=== PATIENT | male | born 1950 | race Caucasian/White ===

== ENCOUNTER 2020-03-01 06:48 | Outpatient (REF) | payer MEDICARE, OTHER, SELFPAY ==
[2020-03-01 07:22] LABS: INTERNATIONAL NORM RATIO 1.5 (0.9-1.1); Prothrombin Time 17.3 SEC (10.8-13.0)
== END 2020-03-01 06:49 | disposition home or self-care (01) ==
LOC: HO.LABR 06:48
PROVIDERS: Visit Provider Internal Medicine
DX: I48.91 Unspecified atrial fibrillation (principal)
CPT/HCPCS: 36415; 85610

== ENCOUNTER 2020-03-06 12:19 | Day surgery (SDC) | payer MEDICARE, OTHER, SELFPAY ==
--- NOTE | 2020-03-05 09:08 | HO.ANESPROP2 ---
Documented by User: Chelsey Alexisney 03/05/20 09:16 HPI - Anesthesia Eval Consult details Narrative: 69yo [facility] Past Medical History Medical History DNS (deviated nasal septum) History of cardioversion HTN (hypertension) Mixed hyperlipidemia NOEL (obstructive sleep apnea) Paroxysmal atrial fibrillation Surgical History Surgical History H/O adenoidectomy History of right inguinal hernia repair Hx of tonsillectomy Social History Social History Smoking Status: Former smoker Smoking Quit Date: 2013 Substance Use Type Other:: medical [facility] Substance Use Frequency: Weekly Advance Directives: No Advance Directives Information Provided: Yes Meds Allergies Allergy/AdvReac Type Severity Reaction Status Date / Time No Known Allergies Allergy Verified 03/05/20 08:42 [No Known Allergies*] Home Medications Medication Instructions Recorded Confirmed Type amiodarone 200 mg PO DAILY 03/05/20 03/05/20 History amlodipine 10 mg PO DAILY 03/05/20 03/05/20 History apixaban 5 mg DAILY 03/05/20 03/05/20 History atenolol 100 mg PO DAILY 03/05/20 03/05/20 History fluticasone propionate 1 spray INTRANASAL DAILY 03/05/20 03/05/20 History lisinopril 20 mg PO DAILY 03/05/20 03/05/20 History simvastatin 20 mg PO DAILY 03/05/20 03/05/20 History venlafaxine 75 mg PO DAILY 03/05/20 03/05/20 History Exam Exam Date and Time: March 05, 2020 0908 Pertinent Lab Results Pertinent Lab Results: Laboratory Tests 01/03/20 18:10 Sodium 140 Potassium 3.9 Chloride 109 H BUN 22 H Creatinine 0.80 Narrative Narrative: EKG 01/2020: afib with nml ventricular response, anteroseptal infarct, probable inferior infarct, slight inferior repolarization disturbance secondary to infarct. Assessment and Plan Assessment Anesthesia Assessment: Chart Reviewed Documented by User: Ricky Ghosh MD 03/06/20 13:59 PMFSH Past Medical History Medical History DNS (deviated nasal septum) History of cardioversion HTN (hypertension) Mixed hyperlipidemia NOEL (obstructive sleep apnea) Paroxysmal atrial fibrillation Surgical History Surgical History H/O adenoidectomy History of right inguinal hernia repair Hx of tonsillectomy Social History Social History Smoking Status: Former smoker Smoking Quit Date: 2013 Substance Use Type Other:: medical [facility] Substance Use Frequency: Weekly Advance Directives: No Advance Directives Information Provided: Yes Meds Allergies Allergy/AdvReac Type Severity Reaction Status Date / Time No Known Allergies Allergy Verified 03/05/20 08:42 [No Known Allergies*] Home Medications Medication Instructions Recorded Confirmed Type amiodarone 200 mg PO DAILY 03/05/20 03/05/20 History amlodipine 10 mg PO DAILY 03/05/20 03/05/20 History apixaban 5 mg DAILY 03/05/20 03/05/20 History atenolol 100 mg PO DAILY 03/05/20 03/05/20 History fluticasone propionate 1 spray INTRANASAL DAILY 03/05/20 03/05/20 History lisinopril 20 mg PO DAILY 03/05/20 03/05/20 History simvastatin 20 mg PO DAILY 03/05/20 03/05/20 History venlafaxine 75 mg PO DAILY 03/05/20 03/05/20 History Exam Airway Mallampati Class: III TM Dist: >3cm Neck ROM: Full Denture: Upper Heart: afib Assessment and Plan Assessment Anesthesia Assessment: Anesthesia Plan Discussed and Chart Reviewed Final Anesthetic Review NPO: Yes ASA Class: III Final Preanesthetic Review: No Changes in Pt Med Stat, Meds/Allgs Chart Reviewed, Consent Obtained/Reviewed and Anes Risks/Benef Reviewed Procedure Risk: Low Anesthetic Plan Anesthetic Plan: GA Disposition: Standard PACU
[2020-03-06] VITALS (7 sets, daily range): BP systolic 106–143; BP diastolic 54–88; PULSE 48–75; RESP 14–18; TEMP 36.3–36.7; O2SAT 95–100; BMI 25.7
--- NOTE | 2020-03-06 | ECG_ITS ---
Test Reason : S/P CARDIOVERSION Blood Pressure : / mmHG Vent. Rate : 049 BPM Atrial Rate : 049 BPM P-R Int : 264 ms QRS Dur : 094 ms QT Int : 456 ms P-R-T Axes : 060 -04 005 degrees QTc Int : 411 ms Sinus bradycardia with 1st degree A-V block Inferior infarct (cited on or before 04-JAN-2020) Abnormal ECG When compared with ECG of 04-JAN-2020 08:03, Premature atrial complexes are no longer Present Criteria for Anteroseptal infarct are no longer Present Referred By: Tavon Francis Electronically Signed By:RONALD QUINTEROS MD
--- NOTE | 2020-03-06 | ECG_ITS ---
Test Reason : PRECARDIOVERSION Blood Pressure : / mmHG Vent. Rate : 072 BPM Atrial Rate : 202 BPM P-R Int : 000 ms QRS Dur : 098 ms QT Int : 396 ms P-R-T Axes : 000 007 -23 degrees QTc Int : 433 ms Atrial fibrillation Low voltage QRS Inferior infarct (cited on or before 04-JAN-2020) Nonspecific ST and T wave abnormality Inferior leads Abnormal ECG When compared with ECG of 04-JAN-2020 08:03, Atrial fibrillation has replaced Sinus rhythm Nonspecific ST depression Inferior leads is new Referred By: Tavon Francis Electronically Signed By:RONALD QUINTEROS MD
[2020-03-06] MEDS: Lactated Ringers 1,000 ML 50 ML IVCONT (13:01)
--- NOTE | 2020-03-06 14:03 | PM.PROC ---
Brief Operative Note Date of procedure: 03/06/20 Pre-op diagnosis: Atrial fib. Post-op diagnosis: same Procedure: Synchronized DC Cardioverson. Anesthesia: MAC Surgeon: Tavon Francis Estimated blood loss (mL): 0 Pathology: none sent Condition: stable Disposition: PACU
--- NOTE | 2020-03-06 14:09 | MHC.SHP ---
Pre-Procedural Eval Section B Chief Complaint: Paroxysmal A-fib Allergies: Allergies Allergy/AdvReac Type Severity Reaction Status Date / Time No Known Allergies Allergy Verified 03/05/20 08:42 [No Known Allergies*] Plan Patient has been examined and remains a candidate for the planned procedure
== END 2020-03-06 15:28 | disposition home or self-care (01) ==
PROVIDERS: PCP Internal Medicine; Visit Provider Internal Medicine Cardiovascular Disease
PROC: 5A2204Z Restoration of Cardiac Rhythm, Single (ICD-10-PCS; principal; 2020-03-06 14:00)
DX: I48.0 Paroxysmal atrial fibrillation (principal); I10 Essential (primary) hypertension; G47.33 Obstructive sleep apnea (adult) (pediatric); Z87.891 Personal history of nicotine dependence
CPT/HCPCS: 92960; 93005

== ENCOUNTER 2020-04-23 07:43 | Outpatient (REF) | payer MEDICARE, OTHER, SELFPAY ==
[2020-04-23 09:21] LABS: Alanine Aminotransferase 11 U/L (0-40); Albumin Level 4.3 g/dL (3.5-5.0); Alkaline Phosphatase 65 U/L (39-117); Anion Gap 11 (12-20); Aspartate Amino Transferase 15 U/L (5-37); Bilirubin Direct 0.2 mg/dL (0.0-0.5); Bilirubin Total 0.5 mg/dL (0.0-1.0); Blood Urea Nitrogen 16 mg/dL (9-16); Carbon Dioxide 31 mmol/L (22-29); Chloride 100 mmol/L (96-108); Estimated Glomerular Filt Rate > 60; Glucose Fasting 108 mg/dL (60-99); Magnesium 1.8 mg/dL (1.6-2.6); Potassium 4.8 mmol/l (3.3-5.1); Sodium 137 mmol/L (135-145); Total Protein 7.1 g/dL (6.5-8.0)
== END 2020-04-23 07:44 | disposition home or self-care (01) ==
LOC: HO.LAB 07:43
PROVIDERS: PCP Internal Medicine; Visit Provider Internal Medicine Cardiovascular Disease
DX: E78.2 Mixed hyperlipidemia (principal); I48.0 Paroxysmal atrial fibrillation; I10 Essential (primary) hypertension
CPT/HCPCS: 80051; 80076; 82565; 82947; 83735; 84443; 84520

== ENCOUNTER 2020-05-06 13:21 | Outpatient (REF) | payer SELFPAY ==
--- NOTE | 2020-05-06 13:55 | MHC.AU.P13 ---
Hearing Instrument Follow-Up- Binaural Date of Visit: 05/06/20 Mergers And Acquisitions Manager Used: Right Ear: Bottom Wheeler: Model: StretchrEO M70-R Serial Number: [id number] Warranty: 04/22/22 REPAIR AND L&D Service Plan: Battery Size: Rechargeable Color: SILVER MONTGOMERY Epitaxial Reactor Technician: 1M Tubing: Type of Dome: LARGE OPEN Type of Mold: Type of Wax Guard: CERUSHIELD Dispensed By: [facility] Date of Fittin02/01/2019 Left Ear: Bottom Wheeler: Phonak Model: AUDEO M70-R Serial Number: [id number] Warranty: 04/22/22 REPAIR AND L&D Service Plan: Battery Size: Rechargeable Color: SILVER MONTGOMERY Epitaxial Reactor Technician: 1M Tubing: Type of Dome: LARGE OPEN Type of Mold: Type of Wax Guard: CERUSHIELD Dispensed By: [facility] Date of Fittin02/01/2019 Follow-Up Summary: WYNNE MAINTENANCE - Hearing aids cleaned, wax guards, large domes, and retention tails replaced - both amplifying clearly. Recommendations: Recommendations: Hearing instrument follow-up or maintenance as needed. Signature: Student/Clinical Fellow: No I have reviewed/agreed with student/fellow documentation: N/A Provider: JOSE DANIEL Sorensen-HIS
== END 2020-05-06 13:22 | disposition home or self-care (01) ==
LOC: HO.HAP 13:21
PROVIDERS: Visit Provider Internal Medicine
DX: Z13.89 Encounter for screening for other disorder (principal)

== ENCOUNTER 2020-06-12 07:11 | Outpatient (REF) | payer MEDICARE, OTHER, SELFPAY ==
[2020-06-12 07:32] LABS: MANUAL DIFF FLAG NO
[2020-06-12 07:35] LABS: Basophils Percent Auto 0.6 % (0-2); Eosinophils Absolute Auto 0.1 X10*3/uL (0.0-0.4); Eosinophils Percent Auto 2.6 % (0-4); Hematocrit 38.6 % (42-52); Imm Gran Abs Auto 0.01 X10*3/uL (0.00-0.03); Imm Gran Pct Auto 0.2 % (0.0-0.4); Lymphocytes Absolute Auto 1.9 X10*3/uL (1.2-4.9); Lymphocytes Percent Auto 35.1 % (20-40); Mean Corpuscular HGB Conc 33.7 g/dl (31.0-36.0); Mean Corpuscular Hemoglobin 31.9 pg (27.0-33.0); Mean Corpuscular Volume 94.8 fL (80-98); Mean Platelet Volume 10.5 fL (9.4-12.4); Monocytes Absolute Auto 0.6 X10*3/uL (0.1-1.2); Monocytes Percent Auto 11.6 % (2-11); Neutrophils Absolute Auto 2.7 X10*3/uL (2.0-8.3); Neutrophils Percent Auto 49.9 % (45-73); Platelet Count 238 X10*3/uL (160-400); Red Blood Count 4.07 X10*6/uL (4.60-5.80); Red Cell Distribution Width 12.4 % (11.0-16.0); White Blood Count 5.3 X10*3/uL (4.8-10.8)
[2020-06-12 07:57] LABS: Estimated Average Glucose 103 mg/dL; Hemoglobin A1C 112.8485 umol/L; Hemoglobin A1c % 5.2 %
[2020-06-12 08:10] LABS: Alanine Aminotransferase 24 U/L (0-40); Albumin Level 4.2 g/dL (3.5-5.0); Alkaline Phosphatase 70 U/L (39-117); Anion Gap 12 (12-20); Aspartate Amino Transferase 25 U/L (5-37); Bilirubin Direct 0.3 mg/dL (0.0-0.5); Bilirubin Total 0.8 mg/dL (0.0-1.0); Blood Urea Nitrogen 15 mg/dL (9-16); Carbon Dioxide 29 mmol/L (22-29); Chloride 99 mmol/L (96-108); Estimated Glomerular Filt Rate > 60; Glucose Fasting 125 mg/dL (60-99); Magnesium 1.9 mg/dL (1.6-2.6); Potassium 4.9 mmol/L (3.3-5.1); Sodium 135 mmol/L (135-145)
[2020-06-12 08:26] LABS: Thyroid Stimulating Hormone 2.27 uIU/mL (0.32-4.0)
== END 2020-06-12 07:12 | disposition home or self-care (01) ==
LOC: HO.LAB 07:11
PROVIDERS: PCP Internal Medicine; Visit Provider Internal Medicine Cardiovascular Disease
DX: I48.0 Paroxysmal atrial fibrillation (principal); I10 Essential (primary) hypertension; E78.2 Mixed hyperlipidemia; R73.01 Impaired fasting glucose
CPT/HCPCS: 36415; 80051; 80076; 82565; 82947; 83036; 83735; 84443; 84520; 85025

== ENCOUNTER 2020-11-05 08:14 | Day surgery (SDC) | payer MEDICARE, OTHER, SELFPAY ==
[2020-10-09 11:14] VITALS: BMI 25.4
--- NOTE | 2020-10-14 09:13 | P.CONAN_ITS ---
HPI - Anesthesia Eval Consult details Narrative: 69yo M for Colonoscopy Eliquis for afib [facility] Past Medical History Medical History (Updated 10/09/20 @ 11:11 by Susan Chawla) COVID-19 vaccine series completed Depression DNS (deviated nasal septum) Elevated fasting blood sugar History of cardioversion HTN (hypertension) Mixed hyperlipidemia On anticoagulant therapy On beta genna at home NOEL (obstructive sleep apnea) Paroxysmal atrial fibrillation Seasonal allergies Surgical History Surgical History (Updated 10/09/20 @ 10:35 by Susan Chawla) H/O adenoidectomy History of right inguinal hernia repair Hx of colonoscopy Hx of tonsillectomy Social History Social History Are you a primary home day care provider to a significant other at home: No Do you presently have visiting nurse or other home services: No Patient Tobacco Use Status: Former Tobacco user Quit Date: 5 years ago Tobacco use type: Cigarette Smoked in Last 30 Days: No Use of substances other than those prescribed or required for medical reasons: No Have you been hit, kicked, punched, or otherwise hurt by someone within the past year? If so, by whom?: No Are you DNR?: No Advance Directives: No Advance Directives Information Provided: No Advance Directives on File: No Recently lost weight without trying: No Eating poorly because of decreased appetite: No Nutrition Risks: No Nutritional Risk Poor oral hygiene: No Meds Allergies Allergy/AdvReac Type Severity Reaction Status Date / Time No Known Allergies Allergy Verified 10/09/20 10:35 [No Known Allergies*] Home Medications Medication Instructions Recorded Confirmed Last Taken Type amiodarone 200 mg PO DAILY 03/05/20 10/09/20 03/06/20 09:00 History amlodipine 10 mg PO DAILY 03/05/20 10/09/20 03/06/20 09:00 History apixaban 5 mg DAILY 03/05/20 10/09/20 03/06/20 09:00 History fluticasone propionate 1 spray INTRANASAL DAILY 03/05/20 10/09/20 Unknown History lisinopril 20 mg PO DAILY 03/05/20 10/09/20 03/06/20 09:00 History simvastatin 20 mg PO DAILY 03/05/20 10/09/20 Unknown History glipizide 1 tab PO BID 10/09/20 10/09/20 Unknown History metoprolol succinate 2 tab PO DAILY 10/09/20 10/09/20 Unknown History venlafaxine 1 tab PO DAILY 10/09/20 10/09/20 Unknown History Exam Exam Date and Time: October 14, 2020 0913 Height,Weight and Vital Signs: Height 6 ft Weight 85.275 kg Pertinent Lab Results Pertinent Lab Results: Laboratory Tests 06/12/20 06/12/20 07:19 07:19 WBC 5.3 Hgb 13.0 L Hct 38.6 L Plt Count 238 Sodium 135 Potassium 4.9 Chloride 99 Carbon Dioxide 29 BUN 15 Creatinine 1.03 Assessment and Plan Assessment Anesthesia Assessment: Chart Reviewed
--- NOTE | 2020-11-04 10:20 | P.CONAN_ITS ---
Documented by User: Chelsey Maggie 11/04/20 10:22 HPI - Anesthesia Eval Consult details Narrative: 69yo M for Colonoscopy Eliquis for afib PMF[facility] Past Medical History Medical History COVID-19 vaccine series completed Depression DNS (deviated nasal septum) Elevated fasting blood sugar History of cardioversion HTN (hypertension) Mixed hyperlipidemia On anticoagulant therapy On beta genna at home NOEL (obstructive sleep apnea) Paroxysmal atrial fibrillation Seasonal allergies Surgical History Surgical History H/O adenoidectomy History of right inguinal hernia repair Hx of colonoscopy Hx of tonsillectomy Social History Social History Are you a primary career and transition teacher to a significant other at home: No Do you presently have visiting nurse or other home services: No Patient Tobacco Use Status: Former Tobacco user Quit Date: 5 years ago Tobacco use type: Cigarette Smoked in Last 30 Days: No Use of substances other than those prescribed or required for medical reasons: No Have you been hit, kicked, punched, or otherwise hurt by someone within the past year? If so, by whom?: No Are you DNR?: No Advance Directives: No Advance Directives Information Provided: No Advance Directives on File: No Recently lost weight without trying: No Eating poorly because of decreased appetite: No Nutrition Risks: No Nutritional Risk Poor oral hygiene: No Meds Allergies Allergy/AdvReac Type Severity Reaction Status Date / Time No Known Allergies Allergy Verified 11/05/20 09:00 [No Known Allergies*] Home Medications Medication Instructions Recorded Confirmed Last Taken Type amiodarone 200 mg PO DAILY 03/05/20 10/09/20 03/06/20 09:00 History amlodipine 10 mg PO DAILY 03/05/20 10/09/20 03/06/20 09:00 History apixaban 5 mg DAILY 03/05/20 11/05/20 11/01/20 History fluticasone propionate 1 spray INTRANASAL DAILY 03/05/20 10/09/20 Unknown History lisinopril 20 mg PO DAILY 03/05/20 11/05/20 11/05/20 07:00 History simvastatin 20 mg PO DAILY 03/05/20 10/09/20 Unknown History glipizide 1 tab PO BID 10/09/20 10/09/20 11/04/20 19:00 History metoprolol succinate 2 tab PO DAILY 10/09/20 10/09/20 Unknown History venlafaxine 1 tab PO DAILY 10/09/20 10/09/20 Unknown History Exam Exam Date and Time: November 04, 2020 1020 Height,Weight and Vital Signs: Height 6 ft Weight 85.275 kg Narrative Narrative: EKG 06/16 (per cardiac note) SB @ 53 with ?ASMI and apical MD, 1st deg AV block Assessment and Plan Assessment Anesthesia Assessment: Chart Reviewed Documented by User: Andrés Lucas 11/05/20 09:10 [facility] Past Medical History Medical History COVID-19 vaccine series completed Depression DNS (deviated nasal septum) Elevated fasting blood sugar History of cardioversion HTN (hypertension) Mixed hyperlipidemia On anticoagulant therapy On beta genna at home NOEL (obstructive sleep apnea) Paroxysmal atrial fibrillation Seasonal allergies Surgical History Surgical History H/O adenoidectomy History of right inguinal hernia repair Hx of colonoscopy Hx of tonsillectomy Social History Social History Are you a primary career and transition teacher to a significant other at home: No Do you presently have visiting nurse or other home services: No Patient Tobacco Use Status: Former Tobacco user Quit Date: 5 years ago Tobacco use type: Cigarette Smoked in Last 30 Days: No Use of substances other than those prescribed or required for medical reasons: No Have you been hit, kicked, punched, or otherwise hurt by someone within the past year? If so, by whom?: No Are you DNR?: No Advance Directives: No Advance Directives Information Provided: No Advance Directives on File: No Recently lost weight without trying: No Eating poorly because of decreased appetite: No Nutrition Risks: No Nutritional Risk Poor oral hygiene: No Meds Allergies Allergy/AdvReac Type Severity Reaction Status Date / Time No Known Allergies Allergy Verified 11/05/20 09:00 [No Known Allergies*] Home Medications Medication Instructions Recorded Confirmed Last Taken Type amiodarone 200 mg PO DAILY 03/05/20 10/09/20 03/06/20 09:00 History amlodipine 10 mg PO DAILY 03/05/20 10/09/20 03/06/20 09:00 History apixaban 5 mg DAILY 03/05/20 11/05/20 11/01/20 History fluticasone propionate 1 spray INTRANASAL DAILY 03/05/20 10/09/20 Unknown History lisinopril 20 mg PO DAILY 03/05/20 11/05/20 11/05/20 07:00 History simvastatin 20 mg PO DAILY 03/05/20 10/09/20 Unknown History glipizide 1 tab PO BID 10/09/20 10/09/20 11/04/20 19:00 History metoprolol succinate 2 tab PO DAILY 10/09/20 10/09/20 Unknown History venlafaxine 1 tab PO DAILY 10/09/20 10/09/20 Unknown History Exam Airway Mallampati Class: II TM Dist: >3cm Neck ROM: Full Loose/Missing/Broken Teeth: Yes Heart: rrr+[id number] Lungs: cta b/l Assessment and Plan Assessment Anesthesia Assessment: Anesthesia Plan Discussed and Chart Reviewed Final Anesthetic Review NPO: Yes ASA Class: III Final Preanesthetic Review: No Changes in Pt Med Stat, Meds/Allgs Chart Reviewed, Consent Obtained/Reviewed and Anes Risks/Benef Reviewed Patient Risk: Intermediate Procedure Risk: Low Assessment/Block/Sedation in SS: Assess/Block/Sedation-SS Anesthetic Plan Anesthetic Plan: MAC: and Agree w/ Assess. and Plan Disposition: Standard PACU
[2020-11-05 09:06] VITALS: BP 156/71; PULSE 54; RESP 16; TEMP 36.8; O2SAT 99
[2020-11-05] MEDS: Lactated Ringers 1,000 ML 100 ML IVCONT (09:21)
[2020-11-05 09:25] LABS: Glucose, Whole Blood 90 mg/dL (60-115)
--- NOTE | 2020-11-05 09:26 | MHC.SHP ---
Pre-Procedural Eval Section A Date of Service: 11/05/20 Section B Chief Complaint: screening Details of Present Illness: see H&P no changes Relevant Family History (Specify if Yes): No Relevant Social History: None Present Medications: see Short Stay Collaborative assessment Medical History: No relevant PMH History of Previous Operations: No relevant previous surgery Allergies: Allergies Allergy/AdvReac Type Severity Reaction Status Date / Time No Known Allergies Allergy Verified 11/05/20 09:00 [No Known Allergies*] Review of Systems Sugical H&P ROS: Negative: Constitution, Cardiovascular, Respiratory, Neurological, Psychiatric, Hem-Onc, Allergic/Immunologic, Gastrointestinal, Genitourinary, Musculoskeletal, Integumentary, Endocrine and Eyes/Ears/Nose/Throat Exam Surgical H&P Exam: Normal: HEENT, Normal: Heart, Normal: Lungs, Normal: Extremities, Normal: Abdomen, Normal: Skin and Normal: Neurological Plan Diagnosis/Plan: Unchanged I have reviewed the history and physical and performed a pertinent physical examination on my patient. No changes have occurred unless specified.
--- NOTE | 2020-11-05 10:06 | PM.OP ---
Brief Operative Note Date of Service: 11/05/20 Pre-op diagnosis: screening Post-op diagnosis: same Surgeon: Blayne James Anesthesia: MAC Was an Door Installer used for this Procedure?: No Estimated blood loss (mL): 0 Pathology: none sent Condition: stable Disposition: PACU
[2020-11-05 10:10] VITALS: BP 140/61; PULSE 55; RESP 16; TEMP 36.3; O2SAT 96
[2020-11-05 10:26] VITALS: BP 134/62; PULSE 52; RESP 18; TEMP 36.4; O2SAT 98
--- NOTE | 2020-11-05 10:39 | OP_ITS ---
SURGEON: Blayne James MD INDICATIONS: Colon cancer screening and prior history of adenomatous colon polyps. PREOPERATIVE DIAGNOSIS: POSTOPERATIVE DIAGNOSIS: PROCEDURE PERFORMED: Colonoscopy to the terminal ileum. ESTIMATED BLOOD LOSS: COMPLICATIONS: ANESTHESIA: ASSISTANTS: SPECIMENS: MEDICATIONS: Monitored anesthesia care. DESCRIPTION OF PROCEDURE: History and physical performed. The risks and benefits of the procedure were explained to the patient. Informed consent was obtained. The patient was placed in the left lateral decubitus position. A digital rectal exam was performed and was found to be normal. The Olympus pediatric video colonoscope was introduced into the rectum and advanced to the cecum without difficulty. The cecum was identified by transillumination, palpation, and identification of ileocecal valve. Examination was performed and the scope was removed. He tolerated the procedure well and was taken to recovery area in stable condition. FINDINGS: The terminal ileum was examined and appeared normal. There was a moderate amount of liquid stool and undigested food in the right colon and descending and sigmoid colon. This was washed and suctioned as best possible, but the exam was limited for detection of small polyps in this area. There was mild sigmoid diverticulosis. Retroflexed examination showed internal hemorrhoids. IMPRESSION: Colonoscopy negative for polyps. RECOMMENDATION: Followup colonoscopy should be considered in 3 to 5 years based on with limitations of today's examination. MD JOSE DANIEL Harrison/LAMARL / [id number]
== END 2020-11-05 10:55 | disposition home or self-care (01) ==
PROVIDERS: PCP Internal Medicine; Visit Provider Internal Medicine Gastroenterology
PROC: 0DJD8ZZ Inspection of Lower Intestinal Tract, Via Natural or Artificial Opening Endoscopic (ICD-10-PCS; CPT 45378; principal; 2020-11-05 09:30)
DX: Z12.11 Encounter for screening for malignant neoplasm of colon (principal); Z86.010 Personal history of colon polyps; K57.30 Diverticulosis of large intestine without perforation or abscess without bleeding; K64.8 Other hemorrhoids; I10 Essential (primary) hypertension; E78.5 Hyperlipidemia, unspecified; R73.9 Hyperglycemia, unspecified; F32.9 Major depressive disorder, single episode, unspecified; G47.33 Obstructive sleep apnea (adult) (pediatric); I48.0 Paroxysmal atrial fibrillation; Z79.01 Long term (current) use of anticoagulants; Z79.84 Long term (current) use of oral hypoglycemic drugs; Z79.899 Other long term (current) drug therapy; Z79.51 Long term (current) use of inhaled steroids; Z87.891 Personal history of nicotine dependence
CPT/HCPCS: G0105; 82947

== ENCOUNTER 2020-12-25 08:34 | Outpatient (REF) | payer SELFPAY ==
--- NOTE | 2020-12-25 08:56 | MHC.AU.HFU ---
Hearing Instrument Follow-Up- Binaural Date of Visit: 12/25/20 Right Ear: Occ Med Physician: Phonak Model: LEWISEO M70-R Serial Number: [id number] Repair Warranty: 04/22/22 REPAIR AND L&D Battery Size: Rechargeable Color: SILVER MONTGOMERY Brush Material Preparer: 1M Type of Dome: LARGE OPEN Type of Wax Guard: CERUSHIELD Dispensed By: [facility] Date of Fittin02/01/2019 Left Ear: Occ Med Physician: Phonak Model: AUDEO M70-R Serial Number: [id number] Repair Warranty: 04/22/22 REPAIR AND L&D Battery Size: Rechargeable Color: SILVER MONTGOMERY Brush Material Preparer: 1M Type of Dome: LARGE OPEN Type of Wax Guard: CERUSHIELD Dispensed By: [facility] Date of Fittin02/01/2019 Follow-Up Summary: Patient dropped off his hearing aids for repair. The left hearing aid is not producing noise and cannot be manually turned off or on, yet the green light is constantly staying on. The right hearing aid is working and can be turned off/on manually, but the green light is not working. It will flash red when turned off, but will not flash green when turned on. It is also not showing green when in the psychiatric nursing assistant. Both hearing aids were sent to [facility] under warranty. Recommendations: Recommendations: Patient will be contacted when materials have arrived. Diagnosis Code(s): Primary Diagnosis: H90.3 Bilateral Sensorineural Hearing Loss Signature: Provider: Lewis Cain, DOMO-A
== END 2020-12-25 08:35 | disposition home or self-care (01) ==
LOC: HO.HAP 08:34
PROVIDERS: Visit Provider Internal Medicine
DX: Z13.89 Encounter for screening for other disorder (principal)

== ENCOUNTER 2021-01-02 09:27 | Outpatient (REF) | payer SELFPAY | END 2021-01-02 09:28 | disposition home or self-care (01) | LOC: HO.HAP 09:27 | PROVIDERS: Visit Provider Internal Medicine | DX: Z13.89 Encounter for screening for other disorder (principal) ==

== ENCOUNTER 2021-05-14 08:28 | Outpatient (REF) | payer SELFPAY ==
--- NOTE | 2021-05-14 08:43 | MHC.AU.P13 ---
Hearing Instrument Problem/Cleaning Date of Visit: 05/14/21 Right Ear: Kitchen Work Supervisor: Phonak Model: Prairie CloudwareEO M70-R Serial Number: [id number] Repair Warranty: 04/22/22 REPAIR AND L&D Battery Size: Rechargeable Color: SILVER MONTGOMERY Automotive Internet Sales Consultant: 1M Type of Dome: LARGE OPEN Type of Wax Guard: CERUSHIELD Dispensed By: [facility] Date of Fittin02/01/2019 Left Ear: Kitchen Work Supervisor: Phonak Model: AUDEO M70-R Serial Number: [id number] Repair Warranty: 04/22/22 REPAIR AND L&D Battery Size: Rechargeable Color: SILVER MONTGOMERY Automotive Internet Sales Consultant: 1M Type of Dome: LARGE OPEN Type of Wax Guard: CERUSHIELD Dispensed By: [facility] Date of Fittin02/01/2019 Follow-Up Summary: Hearing aids brought in for cleaning-left not working. Left aid needed new 1M support service tech, right cleaned wax guard, dome, and retention tail replaced - both aids now amplifying clearly. Recommendations: Recommendations: Hearing instrument follow-up or maintenance as needed. Diagnosis Code(s): Primary Diagnosis: H90.3 Bilateral Sensorineural Hearing Loss Signature: Provider: JOSE DANIEL Sorensen-HIS
== END 2021-05-14 08:29 | disposition home or self-care (01) ==
LOC: HO.HAP 08:28
PROVIDERS: Visit Provider Internal Medicine
DX: Z13.89 Encounter for screening for other disorder (principal)

== ENCOUNTER 2021-10-02 07:06 | Outpatient (REF) | payer MEDICARE, OTHER, SELFPAY ==
[2021-10-02 07:16] LABS: MANUAL DIFF FLAG NO
[2021-10-02 07:47] LABS: Basophils Absolute Auto 0.1 X10*3/uL (0.0-0.2); Basophils Percent Auto 0.8 % (0-2); Eosinophils Absolute Auto 0.3 X10*3/uL (0.0-0.4); Eosinophils Percent Auto 4.1 % (0-4); Hematocrit 39.2 % (42.0-52.0); Hemoglobin 13.1 g/dl (14.0-18.0); Imm Gran Abs Auto 0.01 X10*3/uL (0.00-0.03); Imm Gran Pct Auto 0.2 % (0.0-0.4); Lymphocytes Absolute Auto 2.4 X10*3/uL (1.2-4.9); Lymphocytes Percent Auto 37.6 % (20-40); Mean Corpuscular HGB Conc 33.4 g/dl (31.0-36.0); Mean Corpuscular Hemoglobin 31.5 pg (27.0-33.0); Mean Corpuscular Volume 94.2 fL (80.0-98.0); Mean Platelet Volume 10.2 fL (9.4-12.4); Monocytes Absolute Auto 0.8 X10*3/uL (0.1-1.2); Monocytes Percent Auto 13.2 % (2-11); Neutrophils Absolute Auto 2.8 x10*3/uL (2.0-8.3); Neutrophils Percent Auto 44.1 % (45-73); Platelet Count 277 X10*3/uL (160-400); Red Blood Count 4.16 X10*6/uL (4.60-5.80); Red Cell Distribution Width 12.2 % (11.0-16.0); White Blood Count 6.3 X10*3/uL (4.8-10.8)
[2021-10-02 08:05] LABS: Alanine Aminotransferase 8 U/L (0-40); Albumin Level 4.4 g/dL (3.5-5.0); Alkaline Phosphatase 84 U/L (39-117); Anion Gap 12 (12-20); Aspartate Amino Transferase 16 U/L (5-37); Bilirubin Total 0.6 mg/dL (0.0-1.0); Blood Urea Nitrogen 15 mg/dL (9-16); Calcium 9.8 mg/dL (8.4-10.2); Carbon Dioxide 29 mmol/L (22-29); Chloride 101 mmol/L (96-108); Cholesterol 153 mg/dL; Estimated Glomerular Filt Rate > 60; Glucose Fasting 111 mg/dL (60-99); HDL Cholesterol 53 mg/dL; LDL Cholesterol Calculated 88 mg/dl; Sodium 137 mmol/L (135-145); Total Protein 7.5 g/dL (6.5-8.0); Triglycerides 63 mg/dL
[2021-10-02 08:25] LABS: Prostate Specific Antigen 0.47 ng/mL (<0.05-4.0)
== END 2021-10-02 07:07 | disposition home or self-care (01) ==
LOC: HO.LAB 07:06
PROVIDERS: PCP Internal Medicine; Visit Provider Internal Medicine
DX: Z12.5 Encounter for screening for malignant neoplasm of prostate (principal); R53.83 Other fatigue; E78.00 Pure hypercholesterolemia, unspecified
CPT/HCPCS: 36415; 80053; 80061; 84153; 85025

== ENCOUNTER 2021-12-26 13:40 | Outpatient (REF) | payer MEDICARE, OTHER, SELFPAY | END 2021-12-26 13:41 | disposition home or self-care (01) | LOC: HO.CT 13:40 | PROVIDERS: Visit Provider Physician Assistant Medical | DX: Z13.89 Encounter for screening for other disorder (principal) ==

== ENCOUNTER → 2022-04-13 09:09 | Outpatient (REF) | payer MEDICARE, OTHER, SELFPAY ==
--- NOTE | 2022-04-13 09:14 | CA_ITS ---
Transthoracic Echocardiogram Patient (Last, First, Middle): Uday Ackerman D Gender: Male Date of : 1950 Age: 71 Procedure Date: 04/13/2022 Procedure Type: Transthoracic Echocardiogram Location: OP Height: 182.88 cm Weight: 82.56 kg BSA: 2.05 m2 Heart Rate: bpm BP: 170 / 88 mmHg Consumer Loan Processor: SB Referring MD: Kanu Mercado MD Symptoms: EF OF 25% Study Quality: Adequate w contrast ECG Rhythm: Atrial Fibrillation Conclusions: - The left ventricular systolic function is normal. The calculated ejection fraction is 60% by biplane method. - The left atrium is moderately dilated. - There is moderate calcification of the aortic valve. There is no aortic valve stenosis. - There is mild dilatation of the sinuses of Valsalva measuring 4.50 cm and mild dilatation of the ascending aorta measuring 4.30 cm. Findings Procedure Information Contrast agent, definity, is being given per protocol without apparent complications. Left Ventricle Normal left ventricular cavity size. There is normal left ventricular wall thickness. The left ventricular systolic function is normal. The calculated ejection fraction is 60% by biplane method. There is no evidence of regional wall motion abnormalities. Diastolic function is indeterminate on the basis of available data. Focal hypertrophy of the basal septum. Right Ventricle Normal right ventricular cavity size. Possible right ventricular systolic dysfunction but not very well visualized. Atria The left atrium is moderately dilated. The right atrium is normal in size. Aortic Valve There is moderate calcification of the aortic valve. There is no aortic valve stenosis. There is trace (trivial) aortic valve regurgitation. Mitral Valve The mitral valve appears normal. There is no mitral valve regurgitation. There is no mitral valve stenosis. Pulmonic Valve The pulmonic valve is likely normal. Tricuspid Valve Normal tricuspid valve structure. There is trace tricuspid valve regurgitation. There is no evidence of pulmonary hypertension. Great Vessels There is mild dilatation of the sinuses of Valsalva measuring 4.50 cm and mild dilatation of the ascending aorta measuring 4.30 cm. Venous The inferior vena cava is normal in size and collapses greater than 50% with inspiration. Pericardium/Pleural There is no evidence of pericardial effusion. Prior Study Comparison No significant change compared to prior study dated: 10/30/2016. Measurements 2D Linear Measurements IVSd: 0.92 0.6-0.9/0.6-1.0 cm LVIDd: 4.97 3.9-5.3/4.2-5.9 cm LVIDd Index: 2.42 2.4-3.2/2.2-3.1 cm/m2 LVIDs: 2.78 2.0-3.6 cm LVPWd: 0.80 0.7-1.1 cm LA Diam: 5.00 2.7-3.8/3.0-4.0 cm LAIDs Index: 2.44 1.5-2.3 cm/m2 LV Mass: 182.47 67-162/88-224 g LV Mass Index: 89.01 43-95/49-115 g/m2 LVOT Diam: 2.50 3.0+(-)1.3 cm 2D Systolic Function EF 4C: 57.40 >55% EF 2C: 63.70 >55% EF BiP: 60.10 >55% Mitral Valve MV Pk E: 0.78 Aortic Valve AoV Pk Chidi: 1.31 AoV Pk Grad: 7.00 KAVITHA: 2.97 AI Pk Chidi: 4.36 AI Hans[place]: 1.97 LVOT LVOT Pk Chidi: 0.79 LVOT Mn Chidi: 0.53 LVOT VTI: 0.16 LVOT Pk Grad: 3.00 LVOT Mn Grad: 1.00 LVOT Diam: 2.50 LVOT Area: 4.91 Diastolic Function MV Pk E: 0.78 Right Ventricle TAPSE (mm): 8.70 TVS' Chidi: 5.22 Tricuspid Valve TR Pk Chidi: 2.51 TR Pk Grad: 25.00 RA Press: 3.00 RVSP: 28.00 Great Vessels Aorta Sinus of Valsalva: 4.50 2.0-3.5 cm Ao Asc: 4.30 2.1-3.4 cm Ao Arch: 3.50 Pulmonary Valve PV Pk Chidi: 0.67 Peak PV Grad: 2.00 Updated in Other Vendor System with Status of Final Noe Reyes MD electronically signed on 04/13/2022 4:48:55 PM with status of Final
== END ==
LOC: HO.CARD 09:09
PROVIDERS: Visit Provider Internal Medicine
DX: I42.9 Cardiomyopathy, unspecified (principal)
CPT/HCPCS: 93306; Q9957

== ENCOUNTER 2022-06-22 09:50 | Outpatient (REF) | payer SELFPAY | END 2022-06-22 09:51 | disposition home or self-care (01) | LOC: HO.HAP 09:50 | PROVIDERS: Visit Provider Internal Medicine | DX: Z46.1 Encounter for fitting and adjustment of hearing aid (principal); H90.3 Sensorineural hearing loss, bilateral | CPT/HCPCS: 92593 ==

== ENCOUNTER 2022-10-28 11:24 | Outpatient (REF) | payer SELFPAY | END 2022-10-28 11:25 | disposition home or self-care (01) | LOC: HO.HAP 11:24 | PROVIDERS: Visit Provider Internal Medicine | DX: Z46.1 Encounter for fitting and adjustment of hearing aid (principal); H90.3 Sensorineural hearing loss, bilateral | CPT/HCPCS: 92592; V5299 ==

== ENCOUNTER 2024-03-17 08:58 | Day surgery (SDC) | payer MEDICARE, OTHER, SELFPAY ==
[2024-03-15 09:26] VITALS: BMI 23.7
--- NOTE | 2024-03-16 10:02 | HO.ANESPROP2 ---
Documented by User: Chelsey Serrano NP 03/16/24 10:03 HPI - Anesthesia Eval Consult details Narrative: 73yo M for Colonoscopy Eliquis for afib PMFSH Active Problems Active Problems: All Active Problems Personal history of nicotine dependence (Acute) Past Medical History Medical History Personal history of nicotine dependence Tubular adenoma of colon (~2003) COVID-19 vaccine series completed On anticoagulant therapy On beta genna at home Elevated fasting blood sugar Seasonal allergies Depression DNS (deviated nasal septum) NOEL (obstructive sleep apnea) Paroxysmal atrial fibrillation Mixed hyperlipidemia HTN (hypertension) Surgical History Surgical History History of arthroscopic knee surgery History of colonoscopy History of nasal septoplasty (~2011) History of left inguinal hernia repair (~2015) History of tonsillectomy and adenoidectomy History of right inguinal hernia repair History of cardioversion Social History Social History Are you a primary child care associate to a significant other at home: No Do you presently have visiting nurse or other home services: No Patient Tobacco Use Status: Former Tobacco user Tobacco use type: Cigarette Meds Allergies Allergy/AdvReac Type Severity Reaction Status Date / Time No Known Allergies Allergy Verified 11/05/20 09:00 [No Known Allergies*] Home Medications ?Medication ?Instructions ?Recorded ?Confirmed ?Last Taken ?Type amlodipine 10 mg tablet 5 mg PO DAILY 03/05/20 03/15/24 03/16/24 History apixaban 5 mg tablet 5 mg BID 03/05/20 03/15/24 03/13/24 History fluticasone propionate 50 1 spray intranasal DAILY 03/05/20 03/15/24 03/16/24 History mcg/actuation nasal spray,suspension lisinopril 20 mg tablet 20 mg PO DAILY 03/05/20 03/15/24 03/16/24 History simvastatin 20 mg tablet 20 mg PO DAILY 03/05/20 03/15/24 03/16/24 History venlafaxine 75 mg tablet 1 tab PO DAILY 10/09/20 03/15/24 03/16/24 History atenolol PO BID 03/15/24 03/16/24 History Exam Height,Weight and Vital Signs: Height 6 ft Weight 79.379 kg Assessment and Plan Assessment Anesthesia Assessment: Chart Reviewed Documented by User: Naomi Mathew MD 03/17/24 11:23 HPI - Anesthesia Eval Consult details Narrative: 73yo M for Colonoscopy Eliquis for afib. Last dose 03/13/24 Patient here for Colonoscopy. During preop evaluation, noted to be in rapid Afib with rate up to 150s. Patient did prep. Feeling palpitations. Has been taking all his medications as prescribed but did not take atenolol this morning as was unsure whether he could. BP 176/105. Sats 98%(RA). No other symptoms. Will give IVF, betablocker as needed. Addendum With IVF, HR 95-115. BP 153/91 [facility] Past Medical History Medical History Personal history of nicotine dependence Tubular adenoma of colon (~2003) COVID-19 vaccine series completed On anticoagulant therapy On beta genna at home Elevated fasting blood sugar Seasonal allergies Depression DNS (deviated nasal septum) NOEL (obstructive sleep apnea) Paroxysmal atrial fibrillation Mixed hyperlipidemia HTN (hypertension) Family History Family history of problems with anesthesia: No Surgical History Surgical History History of arthroscopic knee surgery History of colonoscopy History of nasal septoplasty (~2011) History of left inguinal hernia repair (~2015) History of tonsillectomy and adenoidectomy History of right inguinal hernia repair History of cardioversion History of Problems with Anesthesia: No Social History Social History Are you a primary child care associate to a significant other at home: No Do you presently have visiting nurse or other home services: No Patient Tobacco Use Status: Former Tobacco user Tobacco use type: Cigarette Meds Allergies Allergy/AdvReac Type Severity Reaction Status Date / Time No Known Allergies Allergy Verified 11/05/20 09:00 [No Known Allergies*] Home Medications ?Medication ?Instructions ?Recorded ?Confirmed ?Last Taken ?Type amlodipine 10 mg tablet 5 mg PO DAILY 03/05/20 03/15/24 03/16/24 History apixaban 5 mg tablet 5 mg BID 03/05/20 03/15/24 03/13/24 History fluticasone propionate 50 1 spray intranasal DAILY 03/05/20 03/15/24 03/16/24 History mcg/actuation nasal spray,suspension lisinopril 20 mg tablet 20 mg PO DAILY 03/05/20 03/15/24 03/16/24 History simvastatin 20 mg tablet 20 mg PO DAILY 03/05/20 03/15/24 03/16/24 History venlafaxine 75 mg tablet 1 tab PO DAILY 10/09/20 03/15/24 03/16/24 History atenolol PO BID 03/15/24 03/16/24 History Exam Height,Weight and Vital Signs: Height 6 ft Weight 79.379 kg Vital Signs Temp Pulse Resp BP Pulse Ox O2 Del Method 03/17/24 10:43 97 F 110 H 20 167/83 H 97 Room Air 03/17/24 10:30 97.6 F 108 H 18 168/84 H 97 Room Air 03/17/24 10:11 132 H 19 153/91 H 97 Room Air 03/17/24 09:54 96.7 F L 134 H 19 176/105 H 98 Room Air 03/17/24 09:30 98.5 F 82 18 174/103 H 96 Room Air Narrative Narrative: Date of Service: 03/17/24 Procedure(s): ECG 12 lead EKG Test Reason : HYPERTENSION Blood Pressure : / mmHG Vent. Rate : 113 BPM Atrial Rate : 000 BPM P-R Int : 000 ms QRS Dur : 086 ms QT Int : 334 ms P-R-T Axes : 000 002 -44 degrees QTc Int : 458 ms Atrial fibrillation with rapid ventricular response Septal infarct (cited on or before 04-JAN-2020) Inferior infarct (cited on or before 04-JAN-2020) Abnormal ECG When compared with ECG of 06-MAR-2020 15:08, Vent. rate has increased BY 41 BPM Nonspecific T wave abnormality no longer evident in Anterior leads Airway Mallampati Class: III TM Dist: >3cm Neck ROM: Full Denture: Upper Loose/Missing/Broken Teeth: Yes (Some missing. Denies broken or loose teeth) Heart: Irregularly irregular Lungs: CTAB Assessment and Plan Assessment Anesthesia Assessment: Anesthesia Plan Discussed and Chart Reviewed Final Anesthetic Review Family History of Problems with Anesthesia: No History of Problems with Anesthesia: No NPO: Yes ASA Class: III Final Preanesthetic Review: No Changes in Pt Med Stat, Meds/Allgs Chart Reviewed, Consent Obtained/Reviewed and Anes Risks/Benef Reviewed Patient Risk: Intermediate Procedure Risk: Low Assessment/Block/Sedation in SS: Assess/Block/Sedation-SS Anesthetic Plan Anesthetic Plan: TIVA Disposition: Standard PACU
[2024-03-17] VITALS (8 sets, daily range): BP systolic 119–176; BP diastolic 72–105; PULSE 82–134; RESP 16–20; TEMP 35.9–36.9; O2SAT 96–100
--- NOTE | 2024-03-17 09:53 | ECG_ITS ---
Test Reason : HYPERTENSION Blood Pressure : / mmHG Vent. Rate : 113 BPM Atrial Rate : 000 BPM P-R Int : 000 ms QRS Dur : 086 ms QT Int : 334 ms P-R-T Axes : 000 002 -44 degrees QTc Int : 458 ms Atrial fibrillation with rapid ventricular response Septal infarct (cited on or before 04-JAN-2020) Inferior infarct (cited on or before 04-JAN-2020) Abnormal ECG When compared with ECG of 06-MAR-2020 15:08, Vent. rate has increased BY 41 BPM Nonspecific T wave abnormality no longer evident in Anterior leads Referred By: Naomi Mathew Electronically Signed By:MARSHA MARTINEZ MD
--- NOTE | 2024-03-17 10:06 | MHC.SHP ---
Pre-Procedural Eval Section A - 24 Hr Update-Section A only Date of Service: 03/17/24 Section B - Complete if H&P > 30 days Chief Complaint: Encounter for screening for malignant neoplasm of Details of Present Illness: see H&P no changes Relevant Family History (Specify if Yes): No Relevant Social History: None Present Medications: see Short Stay Collaborative assessment Medical History: No relevant PMH History of Previous Operations: No relevant previous surgery Allergies: Allergies Allergy/AdvReac Type Severity Reaction Status Date / Time No Known Allergies Allergy Verified 11/05/20 09:00 [No Known Allergies*] Review of Systems Sugical H&P ROS: Negative: Constitution, Cardiovascular, Respiratory, Neurological, Psychiatric, Hem-Onc, Allergic/Immunologic, Gastrointestinal, Genitourinary, Musculoskeletal, Integumentary, Endocrine and Eyes/Ears/Nose/Throat Exam Surgical H&P Exam: Normal: HEENT, Normal: Heart, Normal: Lungs, Normal: Extremities, Normal: Abdomen, Normal: Skin and Normal: Neurological Plan Diagnosis/Plan: Unchanged I have reviewed the history and physical and performed a pertinent physical examination on my patient. No changes have occurred unless specified. Time Spent With Patient Time: Total time managing care of this patient today ____ minutes.
[2024-03-17] MEDS: Lactated Ringers 1,000 ML 100 ML IVCONT (10:10)
--- NOTE | 2024-03-17 10:10 | PC.NURSE ---
kg ordered resul rapid afib pt denies c/p no sob anesthesia evaluated pt
--- NOTE | 2024-03-17 11:02 | PC.NURSE ---
okay to proceed with colonscopy
--- NOTE | 2024-03-17 11:40 | OP_ITS ---
DATE OF SERVICE: 03/17/2024 SURGEON: Blayne James MD INDICATIONS: Colon cancer screening. PREOPERATIVE DIAGNOSIS: POSTOPERATIVE DIAGNOSIS: PROCEDURE PERFORMED: Colonoscopy to the terminal ileum. ESTIMATED BLOOD LOSS: COMPLICATIONS: ANESTHESIA: Monitored anesthesia care. ASSISTANTS: SPECIMENS: DESCRIPTION OF PROCEDURE: A history and physical was performed. The risks and benefits of the procedure were explained to the patient and informed consent was obtained. The patient was placed in the left lateral decubitus position. A digital rectal exam was performed and was found to be normal. The Olympus pediatric video colonoscope was introduced into the rectum and advanced to the cecum. The cecum was identified by transillumination, palpation, and identification of the ileocecal valve. Examination was performed and the scope was removed. He tolerated the procedure well and was returned to recovery area in stable condition. FINDINGS: The terminal ileum was examined and appeared normal. The visualized colonic mucosa was normal. The quality of the prep was good. No polyps were identified. There was mild sigmoid diverticulosis. Retroflexed examination was normal. IMPRESSION: Normal colonoscopy. RECOMMENDATIONS: 1. Follow up as needed. 2. Repeat colonoscopy is recommended in 10 years for average-risk individuals. This is optional based on his age. MD JOSE DANIEL Harrison/EDWARD / [id number]
== END 2024-03-17 12:49 | disposition home or self-care (01) ==
PROVIDERS: PCP Internal Medicine; Visit Provider Internal Medicine Gastroenterology
PROC: 0DJD8ZZ Inspection of Lower Intestinal Tract, Via Natural or Artificial Opening Endoscopic (ICD-10-PCS; CPT 45378; principal; 2024-03-17 10:30)
DX: Z12.11 Encounter for screening for malignant neoplasm of colon (principal); Z86.0101 Personal history of adenomatous and serrated colon polyps; K57.30 Diverticulosis of large intestine without perforation or abscess without bleeding; G47.33 Obstructive sleep apnea (adult) (pediatric); I10 Essential (primary) hypertension; I48.0 Paroxysmal atrial fibrillation; E78.5 Hyperlipidemia, unspecified; J30.2 Other seasonal allergic rhinitis; F32.A Depression, unspecified; Z79.01 Long term (current) use of anticoagulants; Z79.899 Other long term (current) drug therapy; Z87.891 Personal history of nicotine dependence
CPT/HCPCS: G0105; 93005; J1805; J2003; J2704

== ENCOUNTER → 2024-03-17 09:53 | Outpatient (BNV) | payer MEDICARE, OTHER, SELFPAY | PROVIDERS: PCP Internal Medicine; Visit Provider Internal Medicine Cardiovascular Disease | DX: I48.91 Unspecified atrial fibrillation (principal); I10 Essential (primary) hypertension; R94.31 Abnormal electrocardiogram [ECG] [EKG] | CPT/HCPCS: 93010 ==

== ENCOUNTER 2024-04-05 09:47 | Outpatient (REF) | payer SELFPAY ==
--- OUTSIDE RECORDS SUMMARY | 2024-04-05 23:54 | XMS_ITS ---
Author Organization [facility] Address [address] [place] [address] Care Team Providers Care Director Of Collections And Archives Name Role Phone Kanu Mercado MD Primary Care Provider Unavailab Blayne Forrest Jr Unavailable REASON FOR VISIT screening Encounters Encounter Location Date Provider Diagnosis [facility] [place] Out[place] [address] [place] [phone] 03/17/2024 Blayne James Jr Colon cancer screening Z12.11 ASSESSMENTS Encounter Date Diagnosis Assessment Notes Treatment Notes Treatment Clinical Notes 03/17/2024 Colon cancer screening (ICD-10 - Z12.11) PLAN OF TREATMENT No Information
--- OUTSIDE RECORDS SUMMARY | 2024-04-05 23:54 | XMS_ITS | Patient Health Record ---
Author Organization [facility] Address [address] [place] [address] Care Team Providers Care Legislators Name Role Phone Kanu Mercado MD Primary Care Provider UnavailBlayne Payne Jr Unavailable ALLERGIES No Known Allergies REASON FOR REFERRAL No Information MEDICATIONS Medication SIG (Take, Route, Frequency, Duration) Notes Start Date End Date Status MiraLax (colon prep) 8.3 ounce ((238) grams mixed with Gatorade or Crystal Light orally begin at 5:00 p.m. the day before the procedure for 1 day 09/18/2020 Active Simvastatin 20 MG Orally Ac tive Venlafaxine HCl 75 MG Orally Active Eliquis 5 MG Orally Active Fluticasone Furoate 50 MCG/ACT 1 puff in each nostril Inhalation Active atenolol 5 mg BID BID Ac tive amLODIPine Besylate 5 MG Orally Active Lisinopril 20 MG Orally Act josesito IMMUNIZATIONS Vaccine Route Administration Date Status Comme nts Influenza Unknown 02/14/2020 Administered Influenza Unknown 02/02/2024 Administered SOCIAL HISTORY Tobacco Use: Social History Observation Description Date Details (start date - stop date) Former Smoker NA - NA Sex Assigned At : Social History Observation Description Sex Assigned At Unknown Tobacco Use/Smoking Question Answer Notes Patient is a former smoker When did you stop smoking? 5 years ago How long has it been since you last smoked? 5-10 years PROBLEMS Problem Type ICD Code Onset Dates Problem Status W/U Status Risk SNOMED Code Notes Problem Special screening for malignant neoplasms, colon (Z12.11) Active confirmed 340768396 Problem Colon cancer screening (Z12.11) Active confirmed [id number] Problem prison (current) use of anticoagulants (Z79.01) Active confirmed [id number] Problem prison (current) use of oral hypoglycemic drugs (Z79.84) Active confirmed [id number] VITAL SIGNS Temperature 97.8 degrees Fahrenheit 02/09/2024 Blood pressure diastolic 00 mm Hg 02/09/2024 Height 72 in 02/09/2024 Blood pressure systolic 000 mm Hg 02/09/2024 Weight 175 lb 2 oz lbs 02/09/2024 BMI 23.75 kg/m2 02/09/2024 Encounters Encounter Location Date Provider Diagnosis [facility] [place] Out[place] [address], [place] [phone] 03/17/2024 Blayne James Jr Colon cancer screening Z12.11 [facility] [address] [place] [address] 02/09/2024 Blayne James Jr Colon cancer screening Z12.11 and rat exterminator (current) use of anticoagulants Z79.01 ASSESSMENTS Encounter Date Diagnosis Assessment Notes Treatment Notes Treatment Clinical Notes 03/17/2024 Colon cancer screening (ICD-10 - Z12.11) 02/09/2024 Colon cancer screening (ICD-10 - Z12.11) 02/09/2024 prison (current) use of anticoagulants (ICD-10 - Z79.01) Colonoscopy material was printed PLAN OF TREATMENT Future Test Test Name Order Date COLONOSCOPY 05/02/2015 COLONOSCOPY 09/18/2020 COLONOSCOPY 02/09/2024 Insurance Providers Payer Name Payer Address Payer Phone Subscriber Number Group Number Insured Name Patient Relationship to Insured Coverage Start Date Coverage End Date MEDICARE OF [place] [address] [place] [address] [id number] SCOTT SANTIAGO Self - patient is the insured [employer] ([facility]) [address] [place] [address] [id number] SCOTT SANTIAGO Self - patient is the insured MEDICAL (GENERAL) HISTORY Medical History History ICD Code Colonoscopy 11/13, limited exam, three-ye ar followup hypertension hyperlipidemia depression seasonal allergies Paroxysmal atrial fibrillation Surgical History Surgery Date(Month/Year) hernia surgery 1984
--- OUTSIDE RECORDS SUMMARY | 2024-04-05 23:54 | XMS_ITS ---
Author Organization [facility] Address [address] [place] [address] Care Team Providers Care Power House Control Room Operator Name Role Phone Kanu Mercado MD Primary Care Provider Unavailab Blayne Forrest Jr Unavailable [phone] ALLERGIES No Known Allergies REASON FOR VISIT Patient presents today for a SCREENING COLON MEDICATIONS Medication SIG (Take, Route, Frequency, Duration) [...] Active Lisinopril 20 MG Orally Act josesito SOCIAL HISTORY Tobacco Use: Social History Observation Description Date Details (start date - stop date) Former Smoker NA - NA Sex Assigned At : Social History Observation Description Sex Assigned At Unknown Tobacco Use/Smoking Question Answer Notes Patient is a former smoker When did you stop smoking? 5 years ago How long has it been since you last smoked? 5-10 years VITAL SIGNS BMI 23.75 kg/m2 02/09/2024 Blood pressure systolic 000 mm Hg 02/09/20 24 Blood pressure diastolic 00 mm Hg 024 Height 72 in 02/09/2024 Temperature 97.8 degrees Fahrenheit 02/09/20 24 Weight 175 lb 2 oz lbs 02/09/2024 Encounters Encounter Location Date Provider Diagnosis [facility] [address] [place] [address] 02/09/2024 Blayne James Jr Colon cancer screening Z12.11 and terminal block assembler (current) use of anticoagulants Z79.01 ASSESSMENTS Encounter Date Diagnosis Assessment Notes Treatment Notes Treatment Clinical Notes 02/09/2024 Colon cancer screening (ICD-10 - Z12.11) 02/09/2024 retirement (current) use of anticoagulants (ICD-10 - Z79.01) Colonoscopy material was printed PLAN OF TREATMENT Treatment Notes Assessment Notes terminal block assembler (current) use of anticoagulant s Colonoscopy material was printed Future Test Test Name Order Date COLONOSCOPY 02/09/2024 Next Appt Details Follow Up: 1 Year, Reason: Progress Notes * Examination Category Sub-Category Detail Notes General Examination GENERAL APPEARANCE: in no ac mcgrath distress HEAD: normocephalic EYES: sclera non-icteric NECK/THYROID: no lymphadenopathy HEART: S1, S2 normal, no mu rmurs CHEST: normal shape and exp ansion LUNGS: clear to auscultatio n bilaterally ABDOMEN: soft, nontender, non distended, bowel sounds present, no organomegaly SKIN: anicteric EXTREMITIES: no clubbing, cyanosi s, or edema PSYCH: cognitive function i ntact ORAL CAVITY: mucosa moist
== END 2024-04-05 09:48 | disposition home or self-care (01) ==
LOC: HO.HAP 09:47
PROVIDERS: Visit Provider Internal Medicine
DX: Z13.89 Encounter for screening for other disorder (principal)

== ENCOUNTER 2024-04-06 08:00 | Outpatient (REF) | payer SELFPAY ==
--- OUTSIDE RECORDS SUMMARY | 2024-04-06 08:04 | XMS_ITS ---
Author Organization [facility] Address [address] [place] [address] Care Team Providers Care Marketing Forecaster Name Role Phone Kanu Mercado MD Primary Care Provider Unavailab Blayne Forrest Jr Unavailable REASON FOR VISIT screening Encounters Encounter Location Date Provider Diagnosis [facility] [place] [address] [place] [phone] 03/17/2024 Blayne James Jr Colon cancer screening Z12.11 ASSESSMENTS Encounter Date Diagnosis Assessment Notes Treatment Notes Treatment Clinical Notes 03/17/2024 Colon cancer screening (ICD-10 - Z12.11) PLAN OF TREATMENT No Information
--- OUTSIDE RECORDS SUMMARY | 2024-04-06 08:04 | XMS_ITS | Patient Health Record ---
Author Organization [facility] Address [address] [place] [address] Care Team Providers Care Silk Soaker Name Role Phone Kanu Mercado MD Primary Care Provider UnavailBlayne Payne Jr Unavailable [phone] ALLERGIES No Known Allergies REASON FOR REFERRAL [...] for malignant neoplasms, colon (Z12.11) Active confirmed [id number] Problem Colon cancer screening (Z12.11) Active confirmed 830166282 Problem care home (current) use of anticoagulants (Z79.01) Active confirmed 337186339 Problem care home (current) use of oral hypoglycemic drugs (Z79.84) Active confirmed 865753215632043 VITAL SIGNS Temperature 97.8 degrees Fahrenheit 02/09/2024 Blood pressure diastolic 00 mm Hg 02/09/2024 Height 72 in 02/09/2024 Blood pressure systolic 000 mm Hg 02/09/2024 Weight 175 lb 2 oz lbs 02/09/2024 BMI 23.75 kg/m2 02/09/2024 Encounters Encounter Location Date Provider Diagnosis [facility] Outpatient [address] [place], [place] [phone] 03/17/2024 Blayne James Jr Colon cancer screening Z12.11 [facility] [address] [place] [address] 02/09/2024 Blayne James Jr Colon cancer screening Z12.11 and marine oil terminal superintendent (current) use of anticoagulants Z79.01 ASSESSMENTS Encounter Date Diagnosis Assessment Notes Treatment Notes Treatment Clinical Notes 03/17/2024 Colon cancer screening (ICD-10 - Z12.11) 02/09/2024 Colon cancer screening (ICD-10 - Z12.11) 02/09/2024 care home (current) use of anticoagulants (ICD-10 - Z79.01) Colonoscopy material was printed PLAN OF TREATMENT Future Test Test Name Order Date COLONOSCOPY 05/02/2015 COLONOSCOPY 09/18/2020 COLONOSCOPY 02/09/2024 Insurance Providers Payer Name Payer Address Payer Phone Subscriber Number Group Number Insured Name Patient Relationship to Insured Coverage Start Date Coverage End Date MEDICARE OF [place] [address] [place] [address] [phone] [id number] SCOTT SANTIAGO Self - patient is the insured [employer] ([facility]) [address] [place] [address] [id number] SCOTT SANTIAGO Self - patient is the insured MEDICAL (GENERAL) HISTORY Medical History History ICD Code Colonoscopy 11/13, limited exam, three-ye ar followup hypertension hyperlipidemia depression seasonal allergies Paroxysmal atrial fibrillation Surgical History Surgery Date(Month/Year) hernia surgery 1984
--- OUTSIDE RECORDS SUMMARY | 2024-04-06 08:04 | XMS_ITS ---
Author Organization [facility] Address [address] [place] [address] Care Team Providers Care Acetylene Cutter Name Role Phone Kanu Mercado MD Primary Care Provider Unavailab Blayne Forrest Jr Unavailable [phone] ALLERGIES No Known Allergies REASON FOR VISIT [...] 02/09/2024 Encounters Encounter Location Date Provider Diagnosis [facility] [address] [place] [address] 02/09/2024 Blayne James Jr Colon cancer screening Z12.11 and hospice volunteer (current) use of anticoagulants Z79.01 ASSESSMENTS Encounter Date Diagnosis Assessment Notes Treatment Notes Treatment Clinical Notes 02/09/2024 Colon cancer screening (ICD-10 - Z12.11) 02/09/2024 custodial (current) use of anticoagulants (ICD-10 - Z79.01) Colonoscopy material was printed PLAN OF TREATMENT Treatment Notes Assessment Notes hospice volunteer (current) use of anticoagulant s Colonoscopy material was printed Future Test Test Name Order Date COLONOSCOPY 02/09/2024 Next Appt Details Follow Up: 1 Year, Reason: Progress Notes * Examination Category Sub-Category Detail Notes General Examination GENERAL APPEARANCE: in no ac [place] distress HEAD: normocephalic EYES: sclera non-icteric NECK/THYROID: no lymphadenopathy HEART: S1, S2 normal, no mu rmurs CHEST: normal shape and exp ansion LUNGS: clear to auscultatio n bilaterally ABDOMEN: soft, nontender, non distended, bowel sounds present, no organomegaly SKIN: anicteric EXTREMITIES: no clubbing, cyanosi s, or edema PSYCH: cognitive function i ntact ORAL CAVITY: mucosa moist
== END 2024-04-06 08:01 | disposition home or self-care (01) ==
LOC: HO.HAP 08:00
PROVIDERS: PCP Internal Medicine; Visit Provider Internal Medicine
DX: Z46.1 Encounter for fitting and adjustment of hearing aid (principal); H90.3 Sensorineural hearing loss, bilateral
CPT/HCPCS: V5299

== ENCOUNTER 2024-04-13 06:34 | Outpatient (REF) | payer MEDICARE, OTHER, SELFPAY ==
--- OUTSIDE RECORDS SUMMARY | 2024-04-13 06:37 | XMS_ITS ---
Author Organization [facility] Address [address] [place] [address] Care Team Providers Care Marking Clerk Name Role Phone Kanu Mercado MD Primary Care Provider Unavailab Blayne Forrest Jr Unavailable REASON FOR VISIT screening Encounters Encounter Location Date Provider Diagnosis [facility] Outpatient [address] [place] [phone] 03/17/2024 Blayne James Jr Colon cancer screening Z12.11 ASSESSMENTS Encounter Date Diagnosis Assessment Notes Treatment Notes Treatment Clinical Notes 03/17/2024 Colon cancer screening (ICD-10 - Z12.11) PLAN OF TREATMENT No Information
--- OUTSIDE RECORDS SUMMARY | 2024-04-13 06:38 | XMS_ITS | Patient Health Record ---
Author Organization [facility] Address [address] [place] [address] Care Team Providers Care Commercial Drone Pilot Name Role Phone Kanu Mercado MD Primary Care Provider UnavailBlayne Payne Jr Unavailable [phone] ALLERGIES No Known Allergies REASON FOR REFERRAL [...] for malignant neoplasms, colon (Z12.11) Active confirmed 210557660 Problem Colon cancer screening (Z12.11) Active confirmed 218398325 Problem assisted (current) use of anticoagulants (Z79.01) Active confirmed 532584726 Problem assisted (current) use of oral hypoglycemic drugs (Z79.84) Active confirmed 745469514598076 VITAL SIGNS Temperature 97.8 degrees Fahrenheit 02/09/2024 Blood pressure diastolic 00 mm Hg 02/09/2024 Height 72 in 02/09/2024 Blood pressure systolic 000 mm Hg 02/09/2024 Weight 175 lb 2 oz lbs 02/09/2024 BMI 23.75 kg/m2 02/09/2024 Encounters Encounter Location Date Provider Diagnosis [facility] Outpatient [address] [place], [place] [phone] 03/17/2024 Blayne James Jr Colon cancer screening Z12.11 [facility] [address] [place] [address] 02/09/2024 Blayne James Jr Colon cancer screening Z12.11 and ad terminal makeup operator (current) use of anticoagulants Z79.01 ASSESSMENTS Encounter Date Diagnosis Assessment Notes Treatment Notes Treatment Clinical Notes 03/17/2024 Colon cancer screening (ICD-10 - Z12.11) 02/09/2024 Colon cancer screening (ICD-10 - Z12.11) 02/09/2024 assisted (current) use of anticoagulants (ICD-10 - Z79.01) Colonoscopy material was printed PLAN OF TREATMENT Future Test Test Name Order Date COLONOSCOPY 05/02/2015 COLONOSCOPY 09/18/2020 COLONOSCOPY 02/09/2024 Insurance Providers Payer Name Payer Address Payer Phone Subscriber Number Group Number Insured Name Patient Relationship to Insured Coverage Start Date Coverage End Date MEDICARE OF [place] [address] [place] [address] [id number] SCOTT SANTIAGO Self - patient is the insured [employer] [facility]) [address] [place] [address] [id number] SCOTT SANTIAGO Self - patient is the insured MEDICAL (GENERAL) HISTORY Medical History History ICD Code Colonoscopy 11/13, limited exam, three-ye ar followup hypertension hyperlipidemia depression seasonal allergies Paroxysmal atrial fibrillation Surgical History Surgery Date(Month/Year) hernia surgery 1984
--- OUTSIDE RECORDS SUMMARY | 2024-04-13 06:38 | XMS_ITS ---
Author Organization [facility] Address [address] [place] [address] Care Team Providers Care Manager Continuous Improvement Name Role Phone Kanu Mercado MD Primary Care Provider Unavailab Blayne Forrest Jr Unavailable ALLERGIES No Known Allergies REASON FOR VISIT [...] 02/09/2024 Encounters Encounter Location Date Provider Diagnosis [facility] [address] [place] [address] 02/09/2024 Blayne James Jr Colon cancer screening Z12.11 and cream tester (current) use of anticoagulants Z79.01 ASSESSMENTS Encounter Date Diagnosis Assessment Notes Treatment Notes Treatment Clinical Notes 02/09/2024 Colon cancer screening (ICD-10 - Z12.11) 02/09/2024 USP (current) use of anticoagulants (ICD-10 - Z79.01) Colonoscopy material was printed PLAN OF TREATMENT Treatment Notes Assessment Notes cream tester (current) use of anticoagulant s Colonoscopy material was printed Future Test Test Name Order Date COLONOSCOPY 02/09/2024 Next Appt Details Follow Up: 1 Year, Reason: Progress Notes * Examination Category Sub-Category Detail Notes General Examination GENERAL APPEARANCE: in no ac [place] distress HEAD: normocephalic EYES: sclera non-icteric NECK/THYROID: no lymphadenopathy HEART: S1, S2 normal, no mu rmurs CHEST: normal shape and exp ansion LUNGS: clear to auscultatio n bilaterally ABDOMEN: soft, nontender, non distended, bowel sounds present, no organomegaly SKIN: anicteric EXTREMITIES: no clubbing, cyanosi s, or edema PSYCH: cognitive function i ntact ORAL CAVITY: mucosa moist
[2024-04-13 10:05] LABS: MANUAL DIFF FLAG NO
[2024-04-13 10:11] LABS: Basophils Absolute Auto 0.1 X10*3/uL (0.0-0.2); Basophils Percent Auto 1.5 % (0-2); Eosinophils Absolute Auto 0.3 X10*3/uL (0.0-0.4); Eosinophils Percent Auto 6.3 % (0-4); Hematocrit 45.4 % (42.0-52.0); Hemoglobin 15.3 g/dl (14.0-18.0); Imm Gran Abs Auto 0.01 X10*3/uL (0.00-0.03); Imm Gran Pct Auto 0.3 % (0.0-0.4); Lymphocytes Absolute Auto 1.6 X10*3/uL (1.2-4.9); Lymphocytes Percent Auto 39.9 % (20-40); Mean Corpuscular HGB Conc 33.7 g/dl (31.0-36.0); Mean Corpuscular Volume 98.1 fL (80.0-98.0); Mean Platelet Volume 11.3 fL (9.4-12.4); Monocytes Absolute Auto 0.5 X10*3/uL (0.1-1.2); Monocytes Percent Auto 12.3 % (2-11); Neutrophils Absolute Auto 1.6 x10*3/uL (2.0-8.3); Neutrophils Percent Auto 39.7 % (45-73); Platelet Count 210 X10*3/uL (160-400); Red Blood Count 4.63 X10*6/uL (4.60-5.80); Red Cell Distribution Width 12.4 % (11.0-16.0)
[2024-04-13 10:29] LABS: Alanine Aminotransferase 31 U/L (0-40); Alkaline Phosphatase 54 U/L (39-117); Anion Gap 10 (12-20); Aspartate Amino Transferase 25 U/L (5-37); Bilirubin Total 0.6 mg/dL (0.0-1.0); Blood Urea Nitrogen 12 mg/dL (9-16); Calcium 9.7 mg/dL (8.4-10.2); Carbon Dioxide 32 mmol/L (22-29); Chloride 104 mmol/L (96-108); Cholesterol 163 mg/dL (<200); Estimated Glomerular Filt Rate 58; Glucose Fasting 165 mg/dL (60-99); HDL Cholesterol 61 mg/dL (>40); LDL Cholesterol Calculated 90 mg/dL (<100); Sodium 141 mmol/L (135-145); Total Protein 7.1 g/dL (6.5-8.0); Triglycerides 63 mg/dL (<150)
[2024-04-13 10:38] LABS: Prostate Specific Antigen 0.89 ng/mL (<0.05-4.0)
== END 2024-04-13 06:35 | disposition home or self-care (01) ==
LOC: HO.HMGCLDS 06:34
PROVIDERS: PCP Internal Medicine; Visit Provider Internal Medicine
DX: R53.83 Other fatigue (principal); E78.5 Hyperlipidemia, unspecified; Z12.5 Encounter for screening for malignant neoplasm of prostate
CPT/HCPCS: 36415; 80053; 80061; 84153; 85025

== ENCOUNTER 2024-04-24 07:55 | Outpatient (REF) | payer MEDICARE, OTHER, SELFPAY ==
--- OUTSIDE RECORDS SUMMARY | 2024-04-24 07:58 | XMS_ITS | Patient Health Record ---
Author Organization [facility] Address [address] [place] [address] Care Team Providers Care Internet Sales Associate Name Role Phone Kanu Mercado MD Primary Care Provider UnavailBlayne Payne Jr Unavailable [phone] ALLERGIES No Known Allergies REASON FOR [...] for malignant neoplasms, colon (Z12.11) Active confirmed 877658701 Problem Colon cancer screening (Z12.11) Active confirmed 954121097 Problem senior living (current) use of anticoagulants (Z79.01) Active confirmed 093345981 Problem senior living (current) use of oral hypoglycemic drugs (Z79.84) Active confirmed 282183781964582 VITAL SIGNS Temperature 97.8 degrees Fahrenheit 02/09/2024 Blood pressure diastolic 00 mm Hg 02/09/2024 Height 72 in 02/09/2024 Blood pressure systolic 000 mm Hg 02/09/2024 Weight 175 lb 2 oz lbs 02/09/2024 BMI 23.75 kg/m2 02/09/2024 Encounters Encounter Location Date Provider Diagnosis [facility] Outpatient [address] [place], [place] [phone] 03/17/2024 lBayne James Jr Colon cancer screening Z12.11 [facility] [address] [place] [address] 02/09/2024 Blayne James Jr Colon cancer screening Z12.11 and salvage determiner (current) use of anticoagulants Z79.01 ASSESSMENTS Encounter Date Diagnosis Assessment Notes Treatment Notes Treatment Clinical Notes 03/17/2024 Colon cancer screening (ICD-10 - Z12.11) 02/09/2024 Colon cancer screening (ICD-10 - Z12.11) 02/09/2024 senior living (current) use of anticoagulants (ICD-10 - Z79.01) Colonoscopy material was printed PLAN OF TREATMENT Future Test Test Name Order Date COLONOSCOPY 05/02/2015 COLONOSCOPY 09/18/2020 COLONOSCOPY 02/09/2024 Insurance Providers Payer Name Payer Address Payer Phone Subscriber Number Group Number Insured Name Patient Relationship to Insured Coverage Start Date Coverage End Date MEDICARE OF [place] [address] [facility] [place] [address] [id number] SCOTT SANTIAGO Self - patient is the insured [employer] ([facility]) [address] [place] [address] [id number] SCOTT SANTIAGO Self - patient is the insured MEDICAL (GENERAL) HISTORY Medical History History ICD Code Colonoscopy 11/13, limited exam, three-ye ar followup hypertension hyperlipidemia depression seasonal allergies Paroxysmal atrial fibrillation Surgical History Surgery Date(Month/Year) hernia surgery 1984
--- OUTSIDE RECORDS SUMMARY | 2024-04-24 07:58 | XMS_ITS ---
Author Organization [facility] Address [address] [place] [address] Care Team Providers Care Telephone Order Clerk Name Role Phone Kanu Mercado MD Primary Care Provider UnavailBlayne Payne Jr Unavailable [phone] ALLERGIES No Known Allergies REASON FOR VISIT [...] 02/09/2024 Encounters Encounter Location Date Provider Diagnosis [facility] [address] [place] [address] 02/09/2024 Blayne James Jr Colon cancer screening Z12.11 and keno terminal operator (current) use of anticoagulants Z79.01 ASSESSMENTS Encounter Date Diagnosis Assessment Notes Treatment Notes Treatment Clinical Notes 02/09/2024 Colon cancer screening (ICD-10 - Z12.11) 02/09/2024 detention (current) use of anticoagulants (ICD-10 - Z79.01) Colonoscopy material was printed PLAN OF TREATMENT Treatment Notes Assessment Notes keno terminal operator (current) use of anticoagulant s Colonoscopy material was printed Future Test Test Name Order Date COLONOSCOPY 02/09/2024 Next Appt Details Follow Up: 1 Year, Reason: Progress Notes * Examination Category Sub-Category Detail Notes General Examination GENERAL APPEARANCE: in no ac [place] distress HEAD: normocephalic EYES: sclera non-icteric NECK/THYROID: no lymphadenopathy HEART: S1, S2 normal, no mu rmurs CHEST: normal shape and exp ansion LUNGS: clear to auscultatio n bilaterally ABDOMEN: soft, nontender, non distended, bowel sounds present, no organomegaly SKIN: anicteric EXTREMITIES: no clubbing, cyanosi s, or edema PSYCH: cognitive function i ntact ORAL CAVITY: mucosa moist
--- OUTSIDE RECORDS SUMMARY | 2024-04-24 07:58 | XMS_ITS ---
Author Organization [facility] Address [address] [place] [address] Care Team Providers Care Supervisor Statement Clerks Name Role Phone Kanu Mercado MD Primary Care Provider Unavailab Blayne Forrest Jr Unavailable [phone] REASON FOR VISIT screening Encounters Encounter Location Date Provider Diagnosis [facility] Outpatient [address] [place] [phone] 03/17/2024 Blayne James Jr Colon cancer screening Z12.11 ASSESSMENTS Encounter Date Diagnosis Assessment Notes Treatment Notes Treatment Clinical Notes 03/17/2024 Colon cancer screening (ICD-10 - Z12.11) PLAN OF TREATMENT No Information
[2024-04-24 10:08] LABS: Glucose Fasting 101 mg/dL (60-99)
[2024-04-24 10:28] LABS: Estimated Average Glucose 103 mg/dL; Hemoglobin A1C 124.3208 umol/L; Hemoglobin A1c % 5.2 % (<6.0); Total Hemoglobin (HGBA1C) 3788.2365 umol/L
== END 2024-04-24 07:56 | disposition home or self-care (01) ==
LOC: HO.HMGCLDS 07:55
PROVIDERS: PCP Internal Medicine; Visit Provider Internal Medicine
DX: R53.83 Other fatigue (principal); Z13.1 Encounter for screening for diabetes mellitus
CPT/HCPCS: 36415; 82947; 83036

== ENCOUNTER 2025-01-29 09:36 | Outpatient (REF) | payer SELFPAY ==
--- OUTSIDE RECORDS SUMMARY | 2024-03-17 06:30 | XMS_ITS ---
Author Organization [facility] Address [address] [place] [address] Care Team Providers Care Professional Application Designer Name Role Phone Rogelio (RETIRED) Kanu CARVAJAL Primary Care Provider Unavailable Blayne James Jr REASON FOR VISIT screening Encounters Encounter Location Date Provider Diagnosis [facility] [place] [place] Outpatient [address] [place] [phone] 03/17/2024 Blayne James Jr Colon cancer screening Z12.11 Assessments Encounter Date Diagnosis (ICD Code) Assessment Notes Treatment Notes Treatment Clinical Notes Section Notes 03/17/2024 Colon cancer screening (ICD-10 - Z12.11) Plan Of Treatment No Information Progress Notes * SCOTT SANTIAGO DDOB:[birth year] (74 yo M)Acc No.[id number]:03/17/2024 COLON WITH MAC Patient: SCOTT ESPINOZA Provider: Matilde James MD :1950 A ge:73 Y S ex:Male Date:03/17/2024 Address:[address] [place] [address] Pcp:Kanu Mercado (RETIRED) MD Subjective: * Chief Complaints: * 1 . Screening. * Medical History: Objective: * Vitals: Assessment: * Assessment: 1. C olon cancer screening - Z12.11 (Primary) Plan: * Treatment: * Procedure Codes: G 0105 COLOREC CANCR SCR; COLNSCPY HI RISK, 0529F INTRVL 3+YRS PTS CLNSCP DOCD, 0528F RCMND FLW-UP 10 YRS DOCD, Modifiers: 1P * * The named appointment provid er may or may not be the originator of this progress note, and it is not deemed complete until electronically signed by the appointment provider. Sign off status: Pending * Provider: Matilde James MD Date: 1 05/17/2023 Generated for Thomas coley/Enmanuel/Stephan on: 10:58 AM EDT
--- OUTSIDE RECORDS SUMMARY | 2025-01-29 10:59 | XMS_ITS | Patient Health Record ---
Author Organization [facility] Address [address] [place] [address] Care Team Providers Care Internal Communications Specialist Name Role Phone Rogelio (RETIRED) Kanu CARVAJAL Primary Care Provider Unavailable Blayne James Jr Unavailable [phone] Allergies No Known Allergies Reason For Referral No Information Medications Medication SIG (Take, Route, Frequency, Duration) Notes [...] Active Lisinopril 20 MG Orally Act josesito Immunizations Vaccine Route Administration Date Status Comme nts Influenza Unknown 02/14/2020 Administered Influenza Unknown 02/02/2024 Administered Social History Tobacco Use: Social History Observation Description Date Details (start date - stop date) Former Smoker NA - NA Tobacco Use/Smoking Question Answer Notes Patient is a former smoker When did you stop smoking? 5 years ago How long has it been since you last smoked? 5-10 years Problems Problem Type SNOMED Code ICD Code Onset Dates Problem Status W/U Status Risk Notes Problem [id number] Colon cancer screening (Z12.11) Active confirmed Problem 744329140 halfway (current) use of anticoagulants (Z79.01) Active confirmed Problem 859833364 Special screenin g for malignant neoplasms, colon (Z12.11) Active confirmed Problem 068770122528777 halfway (current) use of oral hypoglycemic drugs (Z79.84) Active confirmed Vital Signs Temperature 97.8 degrees Fahrenheit 02/09/2024 Blood pressure diastolic 00 mm Hg 02/09/2024 Height 72 in 02/09/2024 Blood pressure systolic 000 mm Hg 02/09/2024 Weight 175 lb 2 oz lbs 02/09/2024 BMI 23.75 kg/m2 02/09/2024 Encounters Encounter Location Date Provider Diagnosis [facility] Outpatient [address] [place], [place] [phone] 03/17/2024 Blayne James Jr Colon cancer screening Z12.11 [facility] [address] [place] [address] 02/09/2024 Blayne James Jr Colon cancer screening Z12.11 and halfway (current) use of anticoagulants Z79.01 Assessments Encounter Date Diagnosis (ICD Code) Assessment Notes Treatment Notes Treatment Clinical Notes Section Notes 03/17/2024 Colon cancer screening (ICD-10 - Z12.11) 02/09/2024 Colon cancer screening (ICD-10 - Z12.11) We discussed colonoscopy today. We discussed risks and benefits of the procedure today. He is advised to stop Eliquis 3 days before the procedure. A 2 day prep will be used. 02/09/2024 termite exterminator helper (current) use of anticoagulants (ICD-10 - Z79.01) Colonoscopy material was printed We discussed colonoscopy today. We discussed risks and benefits of the procedure today. He is advised to stop Eliquis 3 days before the procedure. A 2 day prep will be used. Plan Of Treatment Future Test Test Name Order Date COLONOSCOPY 05/02/2015 COLONOSCOPY 09/18/2020 COLONOSCOPY 02/09/2024 Insurance Providers Payer Name Payer Address Payer Phone Subscriber Number Group Number Insured Name Patient Relationship to Insured Coverage Start Date Coverage End Date MEDICARE OF [place] [address] [place] [address] [id number] SCOTT SANTIAGO Self - patient is the insured [facility] ([facility]) [address] [place] [id number] [phone] [id number] SCOTT SANTIAGO Self - patient is the insured Medical (General) History Medical History History ICD Code Colonoscopy 11/13, limited exam, three-ye ar followup hypertension hyperlipidemia depression seasonal allergies Paroxysmal atrial fibrillation Surgical History Surgery Date(Month/Year) hernia surgery 1985
--- OUTSIDE RECORDS SUMMARY | 2025-01-29 10:59 | XMS_ITS | Clinical Summary ---
Author Organization [facility] it Address [address] [place] [address] Care Team Providers Care Radiologist Name Role Phone Kanu Mercado MD Primary Care Provider [phone] Surgical History Surgery Date Site/Laterality Comments CARDIAC CATHETERIZATION PROCEDURE: HISTORICAL CARDIAC CATH Medical History Medical History Date Comments Covid-19 DX:COVID-19 Hypomagnesemia DX:Hypomagnesemi a COPD (chronic obstructive pu lmonary disease) with emphysema (CMS/HCC V24, CMS/HCC V28) DX:COPD (chronic obstructive pulmonary disease) with emphysema (HCC) Osteopenia DX:Osteopenia; C OMMENT: of thoracic spine Essential hypertension DX:Essent ial hypertension Hyperlipidemia DX:Hyperlipidemi a Family History Medical History Relation Name Comments No Known Problems Father Hyperlipidemia Mother Relation Name Status Comments Father Mother Social History Tobacco Use Types Packs/Day Years Used Date Smoking Tobacco: Former Cigarettes Q uit: 04/26/2018 Smokeless Tobacco: Never Alcohol Use Standard Drinks/Week Comments Not Currently 0 (1 standard drink = 0.6 oz pur e alcohol) Sex and Gender Information Value Date Recorded Sex Assigned at Not on file Legal Sex Male 3:28 PM EST Gender Identity Not on file Sexual Orientation Not on file Obstetrics History Plan of Treatment Health Maintenance Due Date Last Done Comments Colorectal Cancer Screening: Colonoscopy 1950 DTaP,Tdap,and Td Vaccines (1 - Tdap) 12/02/1970 Pneumococcal Vaccine: 50+ Years (1 of 1 - PCV) 12/02/2001 Zoster Vaccines (1 of 2) 12/02/2001 Abdominal Aortic Aneurysm (AAA) Screen 04/09/2022 Cholesterol Screening (Lipid Panel) 04/09/2022 Falls Risk Assessment 04/09/2022 Hepatitis C Screening 04/09/2022 Social Influencers of Health Screening 04/09/2022 Hypertension/CHF/CAD Annual BMP Blood Test 11/19/2023 Depression Screening 04/26/2024 COVID-19 Vaccine ( season) 2024 Influenza Vaccine (#1) 2024 3, 01/08/2022, 02/15/2021, Additional history exists RSV Immunization Adult Patients (1 - 1-dose 75+ series) 12/02/2026 HIB Vaccines Aged Out No longer eligi ble based on patient's age to complete this topic HPV Vaccines Aged Out No longer eligi ble based on patient's age to complete this topic Hepatitis A Vaccines Aged Out No long er eligible based on patient's age to complete this topic Hepatitis B Vaccines Aged Out No long er eligible based on patient's age to complete this topic IPV Vaccines Aged Out No longer eligi ble based on patient's age to complete this topic MMR Vaccines Aged Out No longer eligi ble based on patient's age to complete this topic Meningococcal ACWY Vaccine Aged Out N o longer eligible based on patient's age to complete this topic Meningococcal B Vaccine Aged Out No l onger eligible based on patient's age to complete this topic RSV Immunization Patients Under 20 months Aged Out No longer eligible based on patient's age to complete this topic Varicella Vaccines Aged Out No longer eligible based on patient's age to complete this topic Care Teams Radiologist Relationship Specialty Start Date End Date Kanu Mercado MD [address] [facility] [place] PCP - General 01/21/22
--- OUTSIDE RECORDS SUMMARY | 2025-01-29 10:59 | XMS_ITS | Clinical Summary ---
Author Organization [facility] Address [id number] [place] [address] Phone Care Team Providers Care Security Analyst Name Role Phone Kanu Mercado MD Primary Care Provider [phone] Social History Tobacco Use Types Packs/Day Years Used Date Smoking Tobacco: Never Assessed Education Answer Date Recorded Are you interested in more education? Not on ramón e 08/21/2022 Are you concerned about learning? Not on file 08/21/2022 No 08/21/2022 No 08/21/2022 Digital Access Answer Date Recorded No 09/19/2022 No 09/19/2022 No 09/19/2022 Reliable internet access at home? Not on file 09/19/2022 Device with a working camera? Not on file Sex and Gender Information Value Date Recorded Sex Assigned at Not on file Legal Sex Male 10:00 PM EDT Gender Identity Not on file Sexual Orientation Not on file Plan of Treatment Health Maintenance Due Date Last Done Comments Adult Td,Tdap Booster 1950 LIPID PANEL 1950 DEPRESSION SCREENING 1963 SMOKING Hx and SMOKELESS TOB ACCO SCREENING 12/02/1964 HEPATITIS C SCREENING 12/02/1969 COLOGUARD 12/02/1996 COLONOSCOPY 12/02/1996 COLORECTAL CANCER SCREENING 12/02/1996 FIT TEST 12/02/1996 FOBT 12/02/1996 SIGMOIDOSCOPY 12/02/1996 VIRTUAL COLONOSCOPY 12/02/1996 PNEUMOCOCCAL VACCINES (50+ y ears) (1 of 1 - PCV) 12/02/2001 ZOSTER VACCINES (1 of 2) 12/02/2001 INFLUENZA VACCINE (#1) 2024 COVID-19 VACCINE ( - 2023-2 5 season) 2024 RSV VACCINE (1 - 1-dose 75+ series) 12/02/2026 HEPATITIS A VACCINES Aged Out No long er eligible based on patient's age to complete this topic HIB VACCINES Aged Out No longer eligi ble based on patient's age to complete this topic MENINGOCOCCAL VACCINES (ACWY) Aged Out No longer eligible based on patient's age to complete this topic MENINGOCOCCAL VACCINES (B) Aged Out N o longer eligible based on patient's age to complete this topic Medical Devices Not on file Insurance [place] [id number] [facility] MEDICARE SUPPLEMENT [place] Care Teams Security Analyst Relationship Specialty Start Date End Date Kanu Mercado MD [address] [place] [id number] PCP - General Internal Medicine 12/14/19 Additional Source Comments The information contained in this document represents components of the legal health record. It is not the complete legal health record.[facility]
== END 2025-01-29 09:37 | disposition home or self-care (01) ==
LOC: HO.HAP 09:36
PROVIDERS: Visit Provider Internal Medicine
DX: Z13.89 Encounter for screening for other disorder (principal)

== ENCOUNTER 2025-01-31 15:20 | Outpatient (REF) | payer SELFPAY | END 2025-01-31 15:21 | disposition home or self-care (01) | LOC: HO.HAP 15:20 | PROVIDERS: Visit Provider Internal Medicine | DX: Z46.1 Encounter for fitting and adjustment of hearing aid (principal); H90.3 Sensorineural hearing loss, bilateral | CPT/HCPCS: V5299 ==

== ENCOUNTER 2025-02-19 08:14 | Outpatient (AMB) | payer MEDICARE, SELFPAY ==
--- OUTSIDE RECORDS SUMMARY | 2024-03-17 06:30 | XMS_ITS ---
Author Organization [facility] Address [address] [place] [address] Care Team Providers Care Java J2Ee Application Developer Name Role Phone Rogelio (RETIRED) Kanu CARVAJAL Primary Care Provider Unavailable Blayne James Jr REASON FOR VISIT screening Encounters Encounter Location Date Provider Diagnosis [facility] [place] [address] [place] [phone] 03/17/2024 Blayne James Jr Colon cancer screening Z12.11 Assessments Encounter Date Diagnosis (ICD Code) Assessment Notes Treatment Notes Treatment Clinical Notes Section Notes 03/17/2024 Colon cancer screening (ICD-10 - Z12.11) Plan Of Treatment No Information Progress Notes * SCOTT SANTIAGO DDOB:[birth year] (74 yo M)Acc No.[id number]:03/17/2024 COLON WITH MAC Patient: SCOTT ESPINOZA Provider: Matilde James MD :1950 A ge:73 Y S ex:Male Date:03/17/2024 Address:[address] [place] [address] Pcp:Kanu Mercado (RETIRED) MD Subjective: * Chief [...] James MD Date: 05/17/2023 Generated for Thomas coley/Enmanuel/Stephan on: 08:28 AM EDT
--- NOTE | 2025-02-19 08:24 | MHC.PC.OV ---
Vital Signs 02/19/25 08:30 Height 5 ft 10 in Weight 169 lb 0.4 oz BMI 24.2 BP 142/72 H Blood Pressure Location Rt brachial Pulse 60 Pulse Source Pulse Oximeter Temp 96.9 F Pulse Oximetry (%) 97 Intake Visit Reasons: Establish Care/ Dr. Mercado Intake Note: Patient had issues with Afib but says he is not now. Allergies No Known Allergies (No Known Allergies*) Allergy (Verified 02/19/25 08:33) Dental Screening Dental Screen Date: 02/19/25 Did you have a dental visit in the last 12 months?: No Did you have a dental problem in the last 6 months where you did not have access to dental care?: No Was dental information given to patient?: No [facility] Medical History Personal history of nicotine dependence Tubular adenoma of colon (~2003) COVID-19 vaccine series completed On anticoagulant therapy On beta genna at home Elevated fasting blood sugar Seasonal allergies Depression DNS (deviated nasal septum) NOEL (obstructive sleep apnea) Paroxysmal atrial fibrillation Mixed hyperlipidemia HTN (hypertension) Surgical History History of arthroscopic knee surgery History of colonoscopy History of nasal septoplasty (~2011) History of left inguinal hernia repair (~2015) History of tonsillectomy and adenoidectomy History of right inguinal hernia repair History of cardioversion Social History Are you a primary health and social care teacher to a significant other at home: No Do you presently have visiting nurse or other home services: No Patient Tobacco Use Status: Former Tobacco user Tobacco use type: Cigarette Questionnaire PHQ-9 Over the last 2 weeks, how often have you been bothered by any of the following problems? 1. Little interest or pleasure in doing things: not at all 2. Feeling down, depressed, or hopeless: not at all 3. Trouble falling or staying asleep, or sleeping too much: not at all 4. Feeling tired or having little energy: not at all 5. Poor appetite or overeating: not at all 6. Feeling bad about yourself - or that you are a failure or have let yourself or your family down: not at all 7. Trouble concentrating on things, such as reading the newspaper or watching television: not at all 8. Moving or speaking so slowly that other people could have noticed. Or the opposite - being so fidgety or restless that you have been moving around a lot more than usual: not at all 9. Thoughts that you would be better off or of hurting yourself in some way: not at all Total score: 0 Source: Developed by Drs. Keshav Bernal, Rafael Mendez and colleagues, with an educational manuela from [employer]. AUDIT C Alcohol Use Questionnaire (AUDIT-C) 1. How often do you have a drink containing alcohol?: Never 3. How often do you have six or more drinks on one occasion?: Never Total Score: 0 SENAIT-7 AMB Questionnaire SENAIT-7 Date SENAIT - 7 assessed: 02/19/25 Feeling nervous, anxious, or on edge: 0 = Not at all Not being able to stop or control worryin = Not at all Worrying too much about different things: 0 = Not at all Trouble relaxin = Not at all Being so restless that it is hard to sit still: 0 = Not at all Becoming easily annoyed or irritable: 0 = Not at all Feeling afraid as if something awful might happen: 0 = Not at all Total SENAIT-7 score (0-4 normal; 5-9 mild; 10-14 moderate; 15-21 severe): 0 Source: Developed by Drs. Keshav Bernal, Rafael Mendez and colleagues, with an educational manuela from [employer]. Physical exam (Primary Care) Vital Signs: Last Vital Signs Temp 96.9 F 02/19/25 08:30 Pulse 60 02/19/25 08:30 BP 142/72 H 02/19/25 08:30 Pulse Ox 97 02/19/25 08:30 BMI result Body Mass Index 24.2 Tobacco/Smoking Status: Tobacco use Status Patient Tobacco Use Status Former Tobacco user 02/19/25 08:27 Tobacco use type Cigarette 02/19/25 08:27 PHQ-9: PHQ-9 Score PHQ-9: Total score 0 02/19/25 08:38 Coding Level of Care Code New Pt Level 4 (18086) Complex EM visit Add On G2211 Diagnoses HTN (hypertension) I10 Nail dystrophy L60.3 Viral Warts B07.9 Assessment & Plan Assessment & Plan (1) HTN (hypertension): Code(s): I10 - Essential (primary) hypertension Category: Medical Plan: History of Present Illness - The patient is a 74-year-old male presenting for a routine check-up and management of chronic conditions. - Atrial Fibrillation: Managed with cardioversion and medication, currently stable. - Hypertension: Controlled with lisinopril, recent BP 142/72 mmHg. - Depression: Long-term venlafaxine use, planning to taper off. - Skin lesion: Non-cancerous nodule, considering excision. - Nail dystrophy: Black toenail, considering podiatric intervention. - Preventative care: Recent colonoscopy with no polyps, flu vaccination up to date. Social History - Employment: Retired from a correctional facility. - Substance use: Quit alcohol 18 years ago and smoking 6 years ago. - Family status: , lives with spouse. - Exercise: Engages in walking and biking. Review of Systems - Cardiovascular: Denies chest pain or palpitations. - Gastrointestinal: Denies abdominal pain. - Dermatological: Reports a small nodule on the skin. - Musculoskeletal: Reports black toenail, identified as nail dystrophy. Physical Exam General: Cooperative and healthy appearing Nutritional Appearance: Well nourished Orientation/consciousness: Patient oriented x3 Limitations: No limitations Head: Normal to inspection General: Appearance normal, both eyes and all related structures Neck: Normal visual inspection Chest: Normal palpation of entire chest wall Respiratory: Normal respiratory effort Neurology: Patient oriented x3 Results - Colonoscopy: No polyps found. Plan - Continue medications for atrial fibrillation and hypertension. - Gradually taper venlafaxine, monitor for depression symptoms. - Dermatology referral for skin nodule excision if desired. - Podiatry referral for toenail removal if desired. - Complete fasting blood work at [place]. - Schedule follow-up in six months. Discussion Notes I discussed with the patient the importance of continuing his current medications for atrial fibrillation and hypertension. We reviewed the plan for tapering venlafaxine, emphasizing the need to monitor for any return of depression symptoms. I provided referrals for dermatology and podiatry for potential excision of the skin nodule and toenail, respectively. We also arranged for fasting blood work to be completed at [place] and scheduled a follow-up appointment in six months to reassess his health status and medication needs. Patient Instructions - Continue taking your medications for atrial fibrillation and hypertension as prescribed. - Follow the tapering schedule for venlafaxine as discussed, and monitor for any changes in mood. - Attend the dermatology and podiatry appointments if you decide to proceed with the excisions. - Complete the fasting blood work at [place] as scheduled. - Return for a follow-up appointment in six months. (2) Nail dystrophy: Comment: Podiatry consult made Code(s): L60.3 - Nail dystrophy Category: Medical (3) Viral Warts: Code(s): B07.9 - Viral wart, unspecified Plan: Dermatology consult made Plan As above Orders: Orders Basic Metabolic Panel Today I10 - Essential (primary) hypertension Liver Panel Today I10 - Essential (primary) hypertension Complete Blood Count no Diff Today I10 - Essential (primary) hypertension UA and rflx microscopic Today I10 - Essential (primary) hypertension Lipid Panel Today I10 - Essential (primary) hypertension Thyroid Stimulating Hormone Today I10 - Essential (primary) hypertension Referrals Podiatry Referral L60.3 - Nail dystrophy Dermatology Referral B07.9 - Viral wart, unspecified
--- OUTSIDE RECORDS SUMMARY | 2025-02-19 08:29 | XMS_ITS | Clinical Summary ---
Author Organization [facility] Address [id number] [place] [address] Phone Care Team Providers Care Patient Scheduling Coordinator Name Role Phone Kanu Mercado MD Primary Care Provider [phone] Social History Tobacco Use Types Packs/Day Years [...] VACCINE (#1) 2024 COVID-19 VACCINE ( - 2024-2 6 season) 2024 RSV VACCINE (1 - 1-dose [...] [place] [id number] [facility] MEDICARE SUPPLEMENT HI HI Care Teams Patient Scheduling Coordinator Relationship Specialty Start Date End Date Kanu Mercado MD [address] [place] [id number] PCP - General Internal Medicine 12/14/19 Additional Source Comments The information contained in this document represents components of the legal health record. It is not the complete legal health record.[facility]
--- OUTSIDE RECORDS SUMMARY | 2025-02-19 08:29 | XMS_ITS | Clinical Summary ---
Author Organization [facility] it Address [address] [place] [address] Care Team Providers Care Fish Straightener Name Role Phone Kanu Mercado MD Primary Care Provider [phone] Surgical History Surgery Date Site/Laterality Comments CARDIAC [...] age to complete this topic Care Teams Fish Straightener Relationship Specialty Start Date End Date Kanu Mercado MD [address] [facility] [place] PCP - General 01/21/22
--- OUTSIDE RECORDS SUMMARY | 2025-02-19 08:29 | XMS_ITS | Patient Health Record ---
Author Organization [facility] Address [address] [place] [address] Care Team Providers Care Test Clerk Name Role Phone Rogelio (RETIRED) Kanu CARVAJAL Primary Care Provider Unavailable Blayne James Jr Unavailable Allergies No Known Allergies Reason For Referral No Information Medications Medication SIG (Take, Route, Frequency, Duration) Notes Start Date End Date Status MiraLax (colon prep) 8.3 ounce ((238) grams mixed with Gatorade or Crystal Light orally begin at 5:00 p.m. the day before the procedure; Duration: 1 day 09/18/2020 Active Simvastatin 20 MG [...] Problem Status W/U Status Risk Notes Problem Colon cancer screening (763622985) Colon cancer screening (Z12.11) Active confirmed Problem Long-term current use of anticoagulant (288368893) oysterman (current) use of anticoagulants (Z79.01) Active confirmed Problem Screening for malignant neoplasm of colon (411430811) Special screening for malignant neoplasms, colon (Z12.11) Active confirmed Problem Long-term current use of drug therapy (829362162) skilled nursing (current) use of oral hypoglycemic drugs (Z79.84) Active confirmed Encounters Encounter Location Date Provider Diagnosis [facility] [address] [place] [phone] 03/17/2024 Blayne James Jr Colon cancer screening Z12.11 Assessments Encounter Date Diagnosis (ICD Code) Assessment Notes Treatment Notes Treatment Clinical Notes Section Notes 03/17/2024 Colon cancer screening (ICD-10 - Z12.11) Plan Of Treatment Future Test Test Name Order Date COLONOSCOPY 05/02/2015 COLONOSCOPY 09/18/2020 COLONOSCOPY 02/09/2024 Insurance Providers Payer Name Payer Address Payer Phone Subscriber Number Group Number Insured Name Patient Relationship to Insured Coverage Start Date Coverage End Date MEDICARE OF [place] [address] [place] [address] [id number] SCOTT SANTIAGO Self - patient is the insured [employer] ([employer]) [address] [place] [address] [id number] SCOTT SANTIAGO Self - patient is the insured Medical (General) History Medical History History ICD Code Colonoscopy 11/13, limited exam, three-ye ar followup hypertension hyperlipidemia depression seasonal allergies Paroxysmal atrial fibrillation Surgical History Surgery Date(Month/Year) hernia surgery 1984
[2025-02-19 08:30] VITALS: BP 142/72; PULSE 60; TEMP 36.1; O2SAT 97; BMI 24.2
== END 2025-02-19 09:02 | disposition home or self-care (01) ==
LOC: HO.HMCSH 08:14
PROVIDERS: PCP Internal Medicine; Visit Provider Internal Medicine
DX: I10 Essential (primary) hypertension (principal); L60.3 Nail dystrophy; B07.9 Viral wart, unspecified

== ENCOUNTER → 2025-02-19 08:14 | Outpatient (BNVA) | payer SELFPAY | PROVIDERS: PCP Internal Medicine; Visit Provider Internal Medicine | DX: I10 Essential (primary) hypertension (principal); L60.3 Nail dystrophy; B07.9 Viral wart, unspecified; I48.91 Unspecified atrial fibrillation; F32.A Depression, unspecified | CPT/HCPCS: 96127; 99202 ==

== ENCOUNTER 2025-03-14 08:39 | Outpatient (AMB) | payer MEDICARE, OTHER, SELFPAY ==
--- OUTSIDE RECORDS SUMMARY | 2024-03-17 05:30 | XMS_ITS ---
Author Organization [facility] Address [address] [place] [address] Care Team Providers Care Senior Controller Name Role Phone Rogelio (RETIRED) Kanu CARVAJAL Primary Care Provider Unavailable Blayne James Jr REASON FOR VISIT screening Encounters Encounter Location Date Provider Diagnosis [facility] [place] [address] [place] [phone] 03/17/2024 Blayne James Jr Colon cancer screening Z12.11 Assessments Encounter Date Diagnosis (ICD Code) Assessment Notes Treatment Notes Treatment Clinical Notes Section Notes 03/17/2024 Colon cancer screening (ICD-10 - Z12.11) Plan Of Treatment No Information Progress Notes * SCOTT SANTIAGO DDOB:[birth year] (74 yo M)Acc No.[id number]:03/17/2024 COLON WITH MAC Patient: SCOTT ESPINOZA Provider: Matilde James MD :1950 A ge:73 Y S ex:Male Date:03/17/2024 Address:[address] [place] [address] Pcp:Kanu Mercado (RETIRED) MD Subjective: * Chief Complaints: * S creening Assessment: * Assessment: 1. C olon cancer screening - Z12.11 (Primary) Plan: * Procedure Codes: G 0105 COLOREC CANCR SCR; COLNSCPY HI [id number] INTRVL 3+YRS PTS CLNSCP [id number] RCMND FLW-UP 10 YRS DOCD, Modifiers: 1P Billing Information: * Procedure Codes: G0105 COLOREC CANCR SCR; COLNSCPY HI RISK. 0529F INTRVL 3+YRS PTS CLNSCP DOCD. 0528F RCMND FLW-UP 10 YRS DOCD. Modifiers: 1P * The named appointment provid er may or may not be the originator of this progress note, and it is not deemed complete until electronically signed by the appointment provider. Sign off status: Pending * Provider: Matilde James MD Date: 05/17/2023 Generated for Thomas coley/Enmanuel/Emiliasmrochelle on: 05/14/2024 04:22 PM EST
[2025-03-14 08:45] VITALS: BMI 24.2
--- NOTE | 2025-03-14 08:45 | MHC.OFFVIS ---
Vital Signs 03/14/25 08:45 Height 5 ft 10 in Weight 169 lb BMI 24.2 Intake Visit Reasons: Pain left great toe Intake Note: Uday is a 74 year old male who presents today as a new patient for an evaluation of his left hallux pain. Patient reports he has a nail on his right hallux and is interested in having it removed. Patient reports the nail has been like this for a couple years and he tried fungal treatment but found no relief for his symptoms. Allergies No Known Allergies (No Known Allergies*) Allergy (Verified 02/19/25 08:33) HPI Comments Details: The patient is a 74-year-old male with a past medical history as seen below presenting with a thickened, dystrophic, discolored and slightly detached right hallucal nail. The patient initially suspected a fungal infection and recalls a past incident where he jammed his toe while running on grass, which he believes may have contributed to the current condition. The patient denies any pain associated with the nail, although it is loosely attached to the nail bed. There is no history of recent trauma to the toe, and the condition has been persistent for some time. The patient reports that his toes are normally cold and slightly change color. He is under the care of a vascular specialist and recently had some vascular work done. He denies any other pedal concerns. He denies any current nausea, vomiting, fever, or chills. [facility] Medical History (Updated 03/15/25 @ 08:02 by Chio Vaca DPM) Raynauds phenomenon PVD (peripheral vascular disease) Nail dystrophy Nail disorder Onycholysis Tinea unguium Nail dystrophy Personal history of nicotine dependence Tubular adenoma of colon (~2003) COVID-19 vaccine series completed On anticoagulant therapy On beta genna at home Elevated fasting blood sugar Seasonal allergies Depression DNS (deviated nasal septum) NOEL (obstructive sleep apnea) Paroxysmal atrial fibrillation Mixed hyperlipidemia HTN (hypertension) Surgical History (Updated 02/19/25 @ 09:36 by Rehana Brock) History of arthroscopic knee surgery History of colonoscopy (~03/17/24) History of nasal septoplasty (~2011) History of left inguinal hernia repair (~2015) History of tonsillectomy and adenoidectomy History of right inguinal hernia repair History of cardioversion Social History Are you a primary md do resident urgent care to a significant other at home: No Do you presently have visiting nurse or other home services: No Patient Tobacco Use Status: Former Tobacco user Tobacco use type: Cigarette Review of Systems Const Details: - Dermatological: Reports discoloration and looseness of the right hallucal toenail. Denies pain. - Vascular: Reports toes are normally cold. All systems reviewed & are unremarkable except as noted in HPI and below Physical Exam Vital Signs: BMI result Body Mass Index 24.2 Extrem Other: Bilateral lower extremity focused physical exam: Derm: Thickened, discolored, dystrophic, and elongated toenail to the right hallux loosely adhered to the nailbed with subungual debris noted. Remaining toenails within normal limits. Skin supple and turgor within normal limits. No active bleeding purulence or drainage noted. Slight blue discoloration noted to the toes. No clinical signs of infection noted. Vascular: DP/PT pulses mildly palpable. Temperature gradient warm to cold. Capillary refill time slightly greater than 3 seconds. Pedal hair absent. No edema noted. Minimal varicosities noted. Neuro: Protective sensation is grossly intact. MSK: No crepitus or fluctuance noted. Mild hammertoe deformities noted bilaterally. Range of motion of the forefoot, hindfoot, and ankles within normal limits. No other gross abnormalities noted. Office Procedures AMB Debridement/Avulsion Podia Details: Procedure: Right hallux total nail avulsion Cleansed right hallux with an alcohol swab and injected 10cc of 2% lidocaine plain in a hallux block fashion. Next applied a tourniquet to the right hallux and then cleansed the right hallux with Betadine. Attention was drawn to the partially detached right hallucal nail and a [place] was utilized to free the offending nail from the nail bed and nail matrix. Next using a hemostat, the offending nail was removed completely in the nail sample was sent for pathology. Upon removal of the nail subungual debris was noted. A curette was used to remove some subungual debris noted. Next, Triple antibiotic ointment, 2x2 gauze, and Coban was then applied to the right hallux. Procedure was done with no incidents. Provided patient with aftercare instructions. [address] Partial/Total nail avulsion (1 nail) Procedure code (CPT) selection complete Office Meds lidocaine HCl 10 mg/mL (1 %) injection solution Performing Provider: Chio Vaca DPM Performing Location: [facility] Administered by: Chio Vaca DPM on 03/15/25 07:58 Dose Route Admin Location Dispensed Lot Number Expiration Date [facility] Mobility Specialist 10 mL subcut 10 mL [id number] Total Dispensed Waste 10 mL 0 % Comments: Lidocaine 2% used Triple Antibiotic 3.5 mg-400 unit-5,000 unit topical ointment packet Performing Provider: Chio Vaca DPM Performing Location: [facility] Administered by: Chio Vaca DPM on 03/15/25 07:58 Dose Route Admin Location Dispensed Lot Number Expiration Date [facility] Mobility Specialist 1 appl topical 1 appl [id number] [place] povidone-iodine 10 % topical swab Performing Provider: Chio Vaca DPM Performing Location: [facility] Administered by: Chio Vaca DPM on 03/15/25 07:58 Dose Route Admin Location Dispensed Lot Number Expiration Date [facility] Mobility Specialist 1 appl topical 1 appl [id number] [employer] [place]. ethyl chloride 100 % topical spray Performing Provider: Chio Vaca DPM Performing Location: [facility] Administered by: Chio Vaca DPM on 03/15/25 07:58 Dose Route Admin Location Dispensed Lot Number Expiration Date [facility] Mobility Specialist 1 appl topical 116 mL [id number] Lee Silber. Results Reviewed Results Reviewed: Sent nail sample for pathology. Assessment & Plan Assessment & Plan (1) Tinea unguium: Code(s): B35.1 - Tinea unguium Category: Medical (2) Onycholysis: Code(s): L60.1 - Onycholysis Category: Medical (3) Nail disorder: Code(s): L60.9 - Nail disorder, unspecified Category: Medical (4) Nail dystrophy: Code(s): L60.3 - Nail dystrophy Category: Medical (5) PVD (peripheral vascular disease): Code(s): I73.9 - Peripheral vascular disease, unspecified Category: Medical (6) Tinea unguium: Code(s): B35.1 - Tinea unguium Category: Medical (7) Onycholysis: Code(s): L60.1 - Onycholysis Category: Medical (8) Nail dystrophy: Comment: Podiatry consult made Code(s): L60.3 - Nail dystrophy Category: Medical (9) Raynauds phenomenon: Code(s): I73.00 - Raynaud's syndrome without gangrene Category: Medical Plan Patient was informed and verbally consented to the use of an ambient scribe for clinic note documentation during this visit. I discussed with the patient that the right hallucal nail appears to be affected by a fungal infection, which has caused discoloration and lack of adherence to the nail bed. I explained the procedure of total nail avulsion and the need to send the nail for pathology to confirm the diagnosis. The patient was informed about the aftercare, including soaking the toe in Epsom salt and applying Neosporin. We also discussed the importance of follow-up in two weeks to evaluate healing and review pathology results. - Perforedm total nail avulsion of the right hallux and sent the nail sample for pathology to confirm the presence of fungal infection. - Instruct the patient to soak the toe in Epsom salt and warm water for two weeks, apply Neosporin, and cover with a Band-Aid after 24 hours. - Advised the patient to wear supportive shoe gear, avoid barefoot walking, and wear shoes with a wide toe box. - Schedule a follow-up appointment in two weeks to assess healing and review pathology results. RTC in 2 weeks. Orders: Orders AMB Debridement/Avulsion Podiatry 03/14/25 B35.1 - Tinea unguium, I73.9 - Peripheral vascular disease, unspecified, L60.1 - Onycholysis, L60.3 - Nail dystrophy, L60.9 - Nail disorder, unspecified Fungus Cult Hair/Skin/Nail 03/14/25 B35.1 - Tinea unguium, L60.1 - Onycholysis, L60.3 - Nail dystrophy Coding Level of Care Code New Pt Level 4 (10451) Diagnoses Tinea unguium B35.1 Onycholysis L60.1 Nail disorder L60.9 Nail dystrophy L60.3 PVD (peripheral vascular disease) I73.9 Nail dystrophy L60.3 Raynauds phenomenon I73.00 CPT Codes Skin Debridement - CPT: 39019 Partial/Total nail avulsion (1 nail) ([id number]) Time Spent (min) 70 Comment 20 mins for the procedure
--- OUTSIDE RECORDS SUMMARY | 2025-03-14 16:22 | XMS_ITS | Patient Health Record ---
Author Organization [facility] Address [address] [place] [address] Care Team Providers Care Conduit Reamer Operator Name Role Phone Rogelio (RETIRED) Kanu CARVAJAL [...] 1 day 09/18/2020 Active Simvastatin 20 MG Tablet Orally Active Venlafaxine HCl 75 MG Tablet Orally Active Eliquis 5 MG Tablet Orally Active Fluticasone Furoate 50 MCG/ACT Aerosol Powder Breath Activated 1 puff in each nostril Inhalation Active atenolol 5 mg BID BID Ac tive amLODIPine Besylate 5 MG Tablet Orally Active Lisinopril 20 MG Tablet Orally Active Immunizations Vaccine Route Administration Date Status Comme nts Influenza Unknown 02/14/2020 Administered Influenza Unknown 02/02/2024 Administered Social History Tobacco Use: Social History Observation Description Date Details (start date - stop date) Former Smoker NA - NA Social History Tobacco Use: Social Info Question Answer Notes Tobacco Use/Smoking Patient is a former smoker When did you stop smoking? 5 years ago How long has it been since you last smoked? 5-10 years Additional Details Category Social Info Options Details Miscellaneous: Marital status: Occupation: retired/works pa rt time Problems Problem Type SNOMED Code ICD Code Onset Dates Problem Status W/U Status Risk Notes Problem Colon cancer screening (357485607) Colon cancer screening (Z12.11) Active confirmed Problem Long-term current use of anticoagulant (652124730) computer terminal operator (current) use of anticoagulants (Z79.01) Active confirmed Problem Screening for malignant neoplasm of colon (222660307) Special screening for malignant neoplasms, colon (Z12.11) Active confirmed Problem Long-term current use of drug therapy (175904921) USP (current) use of oral hypoglycemic drugs (Z79.84) Active confirmed Encounters Encounter Location Date Provider Diagnosis [facility] Out[facility] [address] [place] [phone] 03/17/2024 Blayne James Jr Colon cancer screening [...] Date MEDICARE OF [place] [address] [place] [address] [phone] [id number] SCOTT SANTIAGO Self - patient is the insured [employer] ([employer]) [address] [place] [address] [id number] SCOTT SANTIAGO Self - patient is the insured Medical (General) History Medical History History ICD Code Colonoscopy 11/13, limited exam, three-ye ar followup hypertension hyperlipidemia depression seasonal allergies Paroxysmal atrial fibrillation Surgical History Surgery Date(Month/Year) hernia surgery 1984
--- OUTSIDE RECORDS SUMMARY | 2025-03-14 16:22 | XMS_ITS | Clinical Summary ---
Author Organization [facility] it Address [address] [place] [address] Care Team Providers Care Stacker Tender Name Role Phone Kanu Mercado MD Primary Care Provider [phone] Surgical History Surgery Date Site/Laterality Comments CARDIAC [...] Years Used Date Smoking Tobacco: Former Cigarettes 1 Q uit: 04/26/2018 Smokeless Tobacco: Never Alcohol [...] 11/19/2023 Depression Screening 04/26/2024 COVID-19 Vaccine ( - 2024- season) 2024 Influenza Vaccine (#1) 2024 3, [...] age to complete this topic Care Teams Stacker Tender Relationship Specialty Start Date End Date [facility] Mercado [facility] [place] [facility] - General 01/21/22
--- OUTSIDE RECORDS SUMMARY | 2025-03-14 16:22 | XMS_ITS | Clinical Summary ---
Author Organization [facility] Address [address] [place] [address] Phone Care Team Providers Care Catalyst Recovery Operator Name Role Phone Kanu Mercado MD Primary Care Provider [phone] Social History Tobacco Use Types Packs/Day Years [...] [place] [id number] [facility] MEDICARE SUPPLEMENT [place] Care Teams Catalyst Recovery Operator Relationship Specialty Start Date End Date Kanu Mercado MD [address] [place] [id number] PCP - General Internal Medicine 12/14/19 Additional Source Comments The information contained in this document represents components of the legal health record. It is not the complete legal health record.[facility]
== END 2025-03-14 09:32 | disposition home or self-care (01) ==
PROVIDERS: PCP Internal Medicine; Visit Provider Student in an Organized Health Care Education/Training Program
DX: B35.1 Tinea unguium (principal); L60.1 Onycholysis; L60.9 Nail disorder, unspecified; L60.3 Nail dystrophy; I73.9 Peripheral vascular disease, unspecified; I73.00 Raynaud's syndrome without gangrene
CPT/HCPCS: 11730; 99204

== ENCOUNTER 2025-03-14 08:39 | Outpatient (REF) | payer MEDICARE, SELFPAY | END 2025-03-14 08:40 | disposition home or self-care (01) | LOC: HO.LNP 08:39 | PROVIDERS: PCP Internal Medicine; Visit Provider Student in an Organized Health Care Education/Training Program | DX: L60.3 Nail dystrophy (principal); B35.1 Tinea unguium; L60.1 Onycholysis; I73.9 Peripheral vascular disease, unspecified; I73.00 Raynaud's syndrome without gangrene | CPT/HCPCS: 11730; 87101; 87220; 99202; J2003 ==

== ENCOUNTER 2025-03-29 11:30 | Outpatient (AMB) | payer MEDICARE, OTHER, SELFPAY ==
[2025-03-29 11:46] VITALS: BMI 24.2
--- NOTE | 2025-03-29 11:46 | A.OFFVIS_ITS ---
Vital Signs 03/29/25 11:46 Height 5 ft 10 in Weight 169 lb BMI 24.2 Intake Visit Reasons: f/u right TNA Intake Note: Anne is a 74 year old male who presents today for a follow up on his TNA. Patient reports everything is going well and he denies experiencing any pain at this time. Allergies No Known Allergies (No Known Allergies*) Allergy (Verified 03/29/25 11:50) HPI Comments Details: The patient is a 74 year old male presenting for follow-up S/P right hallux TNA. He reports that the site has healed well, with minimal bleeding and no evidence of purulence. He denies any pain to te site. Denies any new pedal injuries. Denies any new pedal concerns. [facility] Medical History (Updated 03/15/25 @ 08:02 by Chio Vcaa DPM) Raynauds phenomenon PVD (peripheral vascular disease) Nail dystrophy Nail disorder Onycholysis Tinea unguium Nail dystrophy Personal history of nicotine dependence Tubular adenoma of colon (~2003) COVID-19 vaccine series completed On anticoagulant therapy On beta genna at home Elevated fasting blood sugar Seasonal allergies Depression DNS (deviated nasal septum) NOEL (obstructive sleep apnea) Paroxysmal atrial fibrillation Mixed hyperlipidemia HTN (hypertension) Surgical History (Updated 02/19/25 @ 09:36 by Rehana Brock) History of arthroscopic knee surgery History of colonoscopy (~03/17/24) History of nasal septoplasty (~2011) History of left inguinal hernia repair (~2015) History of tonsillectomy and adenoidectomy History of right inguinal hernia repair History of cardioversion Social History Are you a primary hospice care transitions coordinator to a significant other at home: No Do you presently have visiting nurse or other home services: No Patient Tobacco Use Status: Former Tobacco user Tobacco use type: Cigarette Review of Systems Const Details: - Dermatological: Reports positive healing to right hallux TNA site. All systems reviewed & are unremarkable except as noted in HPI and below Physical Exam Vital Signs: BMI result Body Mass Index 24.2 Extrem Other: Bilateral lower extremity focused physical exam: Derm: Healed site of hallux TNA site with no evidence of bleeding, drainage, or purulence noted. Remaining toenails within normal limits. Skin supple and turgor within normal limits. Slight blue discoloration noted to the toes. No clinical signs of infection noted. Vascular: DP/PT pulses mildly palpable. Temperature gradient warm to cold. Capillary refill time slightly greater than 3 seconds. Pedal hair absent. No edema noted. Minimal varicosities noted. Neuro: Protective sensation is grossly intact. MSK: No pain on palpation to hallux TNA site. No crepitus or fluctuance noted. Mild hammertoe deformities noted bilaterally. Range of motion of the forefoot, hindfoot, and ankles within normal limits. No other gross abnormalities noted. Results Reviewed Results Reviewed: Right hallux nail culture: Fungus present, doesn't resemble a dermatophyte. Assessment & Plan Assessment & Plan (1) Tinea unguium: Code(s): B35.1 - Tinea unguium Category: Medical (2) Onycholysis: Code(s): L60.1 - Onycholysis Category: Medical (3) Nail disorder: Code(s): L60.9 - Nail disorder, unspecified Category: Medical (4) Nail dystrophy: Code(s): L60.3 - Nail dystrophy Category: Medical (5) PVD (peripheral vascular disease): Code(s): I73.9 - Peripheral vascular disease, unspecified Category: Medical (6) Nail dystrophy: Comment: Podiatry consult made Code(s): L60.3 - Nail dystrophy Category: Medical (7) Raynauds phenomenon: Code(s): I73.00 - Raynaud's syndrome without gangrene Category: Medical Plan Patient was informed and verbally consented to the use of an ambient scribe for clinic note documentation during this visit. I discussed the results of the nail biopsy, which confirmed the presence fungus. I informed the patient that the procedural site shows good healing with no signs of infection. I advised patient he does not need to continue with after care instruction and to monitor the regrowth of the nail, which is expected to take about 9 to 12 months. I instructed him to schedule a follow-up appointment if he notices significant nail thickening, discoloration, or clinical signs of infection. - The patient was informed that the toenail specimen was positive for fungus. - He may discontinue soaking, applying Neosporin, and covering the toe. - A bandage may be used for protection when wearing tight dress shoes. - Monitor nail growth out over the next 9-12 months. - Avoid tight fitting shoes. - Wear supportive shoe gear and avoid barefoot walking. - Keep feet clean, dry, and intact. RTC PRN Coding Level of Care Code Est Pt Level 3 (26016) Diagnoses Tinea unguium B35.1 Onycholysis L60.1 Nail disorder L60.9 Nail dystrophy L60.3 PVD (peripheral vascular disease) I73.9 Nail dystrophy L60.3 Raynauds phenomenon I73.00 Time Spent (min) 20
== END 2025-03-29 11:54 | disposition home or self-care (01) ==
LOC: HO.HPODS 11:31
PROVIDERS: PCP Internal Medicine; Visit Provider Student in an Organized Health Care Education/Training Program
DX: B35.1 Tinea unguium (principal); L60.1 Onycholysis; L60.9 Nail disorder, unspecified; L60.3 Nail dystrophy; I73.9 Peripheral vascular disease, unspecified; I73.00 Raynaud's syndrome without gangrene
CPT/HCPCS: 99213

== ENCOUNTER → 2025-03-29 11:30 | Outpatient (BNVA) | payer MEDICARE, OTHER, SELFPAY | PROVIDERS: PCP Internal Medicine; Visit Provider Student in an Organized Health Care Education/Training Program | DX: B35.1 Tinea unguium (principal); L60.1 Onycholysis; L60.9 Nail disorder, unspecified; L60.3 Nail dystrophy; I73.9 Peripheral vascular disease, unspecified; I73.00 Raynaud's syndrome without gangrene | CPT/HCPCS: 99212 ==